=== PATIENT | female | born 1950 | race Caucasian/White ===

== ENCOUNTER 2018-06-25 14:50 | Inpatient (IN) | payer OTHER ==
--- NOTE | 2018-06-25 15:10 | PDOC ---
History of Present Illness - General Chief Complaint: Injury Stated Complaint: FALL Time Seen by Provider: 06/25/18 15:10 History Source: Patient Exam Limitations: No Limitations - History of Present Illness Initial Comments: 06/25/18 15:17 68 year old female with PMH HTN presented to ED for left ankle pain s/p fall today. She stated she was walking her dogs when she slipped and fell on leaves. She denied head injury, denied LOC, denied vomiting, denied chest pain, denied shortness of breath, denied palpitations, denied lightheadedness. She stated her ankle looked deformed, but that she was able to walk on it afterwards. Past History - Past Medical History Allergies/Adverse Reactions: Allergies Allergy/AdvReac Type Severity Reaction Status Date / Time No Known Allergies Allergy Verified 06/25/18 15:05 COPD: No CHF: No - Suicide/Smoking/Psychosocial Hx Smoking History: Never smoked Have you smoked in the past 12 months: No Information on smoking cessation initiated: No Hx Alcohol Use: No Drug/Substance Use Hx: No Substance Use Type: None Review of Systems - Review of Systems Able to Perform ROS?: Yes Comments:: 06/25/18 15:18 General: denied fever, chills, night sweats, generalized weakness. HEENT: denied sore throat, rhinorrhea, ear pain. Heart: denied chest pain, palpitations, syncope, lower extremity swelling, diaphoresis. Respiratory: denied shortness of breath, cough, sputum production, hemoptysis. Abdomen: denied abdominal pain, nausea, vomiting, diarrhea, constipation, blood in stool. : denied dysuria, increased urinary frequency, hematuria, urinary incontinence , flank pain. Back: denied back pain. Musculoskeletal: admitted to left ankle pain and left ankle swelling. Neurological: denied headache, dizziness, numbness, tingling, weakness. Skin: denied rash, laceration, abrasion. *Physical Exam - Vital Signs Last Vital Signs Temp Pulse Resp BP Pulse Ox 98.0 F 58 L 16 114/71 100 06/25/18 15:02 06/25/18 15:02 06/25/18 15:02 06/25/18 15:02 06/25/18 15:02 - Physical Exam Comments: 06/25/18 15:18 Constitutional: Well-nourished, Well-developed, appearing stated age. HEENT: head is normocephalic, atraumatic. EOMI. PERRLA. Neck: supple. Full ROM. Heart: regular rhythm. no murmurs, rubs or gallops. Lungs: clear to auscultation bilaterally. no crackles, rhonchi or wheezing. no stridor. Abdomen: soft, nontender. normal bowel sounds. no rebound, guarding, masses. Extremities: Peripheral pulses intact. left ankle pain to palpation, swelling and deformity with skin tenting to the medial aspect. Neurological: CN 2-12 grossly intact. Moves all four extremities. Psych: awake, alert, oriented x3. Follows commands. Answers questions appropriately. ED Treatment Course - LABORATORY CBC & Chemistry Diagram: 06/25/18 17:04 06/25/18 17:04 - RADIOLOGY Radiology Studies Ordered: Category Date Time Status ANKLE & FOOT-LEFT* [RAD] Stat Radiology 06/25/18 15:06 Ordered Medical Decision Making - Medical Decision Making 06/25/18 15:19 68 year old female with PMH HTN c/o left ankle pain and swelling s/p trip and fall. Initial Vital Signs Temp Pulse Resp BP Pulse Ox 98.0 F 58 L 16 114/71 100 06/25/18 15:02 06/25/18 15:02 06/25/18 15:02 06/25/18 15:02 06/25/18 15:02 Afebrile. Mild bradycardia, no chest pain, no shortness of breath. No tachypnea. No hypertension. No hypoxia on room air. Percocet ordered for pain. X-ray left ankle ordered for evaluation of possible fracture/dislocation. 06/25/18 16:45 XR left ankle: Bimalleolar fracture Ortho paged. 06/25/18 17:[address] Hart, who stated he will come to the ED to evaluate the patient. He requests Lidocaine 10% 10 cc for intra-articular block. Above ordered. Morphine 4 mg IV ordered for pain control. 06/25/18 17:09 Dr. Hart at bed side. 06/25/18 17:52 10cc lidocaine 1% injected into ankle joint by Dr. Hart. Fracture reduced by Dr. Hart at bedside. Posterior leg splint applied. Post-reduction XR ordered. Tdap ordered. 06/25/18 18:14 Preop labs reviewed: CBC WBC 9.3 K/mm3 (4.0-10.0) 06/25/18 17:04 RBC 4.27 M/mm3 (3.60-5.2) 06/25/18 17:04 Hgb 12.9 GM/dL (10.7-15.3) 06/25/18 17:04 Hct 36.7 % (32.4-45.2) 06/25/18 17:04 MCV 85.9 fl (80-96) 06/25/18 17:04 MCH 30.3 pg (25.7-33.7) 06/25/18 17:04 MCHC 35.3 g/dl (32.0-36.0) 06/25/18 17:04 RDW 13.1 % (11.6-15.6) 06/25/18 17:04 Plt Count 199 K/MM3 (134-434) 06/25/18 17:04 MPV 10.6 fl (7.5-11.1) 06/25/18 17:04 Absolute Neuts (auto) 7.6 K/mm3 (1.5-8.0) 06/25/18 17:04 Neutrophils % 82.3 % (42.8-82.8) 06/25/18 17:04 Lymphocytes % 11.9 % (8-40) 06/25/18 17:04 Monocytes % 5.2 % (3.8-10.2) 06/25/18 17:04 Eosinophils % 0.2 % (0-4.5) 06/25/18 17:04 Basophils % 0.4 % (0-2.0) 06/25/18 17:04 Nucleated RBC % 0 % (0-0) 06/25/18 17:04 CMP Sodium 140 mmol/L (136-145) 06/25/18 17:04 Potassium 3.9 mmol/L (3.5-5.1) 06/25/18 17:04 Chloride 107 mmol/L (98-107) 06/25/18 17:04 Carbon Dioxide 26 mmol/L (21-32) 06/25/18 17:04 Anion Gap 7 MMOL/L (8-16) L 06/25/18 17:04 BUN 23 mg/dL (7-18) H 06/25/18 17:04 Creatinine 0.9 mg/dL (0.55-1.3) 06/25/18 17:04 Creat Clearanc e w eGFR > 60 (>60) 06/25/18 17:04 Random Glucose 90 mg/dL (74-106) 06/25/18 17:04 Calcium 9.2 mg/dL (8.5-10.1) 06/25/18 17:04 Total Bilirubin 0.5 mg/dL (0.2-1) 06/25/18 17:04 AST 34 U/L (15-37) 06/25/18 17:04 ALT 37 U/L (13-61) 06/25/18 17:04 Alkaline Phosphatase 112 U/L (45-117) 06/25/18 17:04 Creatine Kinase 363 IU/L (26-192) H 06/25/18 17:04 Troponin I < 0.02 ng/ml (0.00-0.05) 06/25/18 17:04 Total Protein 7.5 g/dl (6.4-8.2) 06/25/18 17:04 Albumin 3.9 g/dl (3.4-5.0) 06/25/18 17:04 INR, PTT INR 1.00 (0.83-1.09) 06/25/18 17:04 EKG performed at 1723: rate 64, regular rhythm, normal axis, flipped T in V2, flattened T in III. 06/25/18 18:44 Pt has decided to stay in the hospital. Pt will be admitted. Dr. Alvarez is a friend of the family, family asked to keep him involved in the case, he has been paged. 06/25/18 19:07 Microblog sent to hospitalist. Pt signed out to Dr. Rdz. *DC/Admit/Observation/Transfer Diagnosis at time of Disposition: Bimalleolar ankle fracture - Discharge Dispostion Condition at time of disposition: Improved Decision to Admit order: Yes - Referrals Referrals: Brett Cooley MD [Primary Care Provider] - - Patient Instructions - Post Discharge Activity
[2018-06-25] MEDS ORDERED: LIDOCAINE HCL 1%, 10 MG/ML (50 mL VIAL) SQ ONE (17:00)
[2018-06-25] MEDS ORDERED: morphine CARPU-JECT 4 MG/1 ML DISP.SYRIN IVPUSH ONE (17:01)
[2018-06-25] MEDS ORDERED: morphine SULFATE 4 MG/ML VIAL ONE (17:18)
[2018-06-25] MEDS ORDERED: LIDOCAINE HCL 1%, 10 MG/ML (20ML VIAL) ONE (17:18)
[2018-06-25 17:22] LABS: BASO % 0.4 % (0-2.0); EOS % 0.2 % (0-4.5); HEMATOCRIT 36.7 % (32.4-45.2); HEMOGLOBIN 12.9 GM/dL (10.7-15.3); LYMPH % 11.9 % (8-40); MCH 30.3 pg (25.7-33.7); MCHC 35.3 g/dl (32.0-36.0); MEAN CELL VOLUME 85.9 fl (80-96); MEAN PLT VOLUME 10.6 fl (7.5-11.1); MONO % 5.2 % (3.8-10.2); NEUT % 82.3 % (42.8-82.8); PLATELET COUNT 199 K/MM3 (134-434); RBC 4.27 M/mm3 (3.60-5.2); RDW 13.1 % (11.6-15.6); WHITE BLOOD COUNT 9.3 K/mm3 (4.0-10.0)
--- NOTE | 2018-06-25 17:23 | PDOC ---
History of Present Illness - General Chief Complaint: Injury Stated Complaint: FALL Time Seen by Provider: 06/25/18 15:10 - History of Present Illness Initial Comments: 06/25/18 17:21 The patient is a 68-year-old female with past medical history significant for HTN presents to the emergency department s/p a fall with L ankle pain. The patient reports she was walking her dog when she slipped on a leaf and fell, denies head injury, LOC. States she felt her ankle roll under her. The patient states she was able to ambulate on the injured leg following the incident but reports severe pain and swelling. Denies any other injury. Allergies: NKA Social history: None reported PCP: None reported. Past History - Past Medical History Allergies/Adverse Reactions: Allergies Allergy/AdvReac Type Severity Reaction Status Date / Time No Known Allergies Allergy Verified 06/25/18 15:05 COPD: No CHF: No - Suicide/Smoking/Psychosocial Hx Smoking History: Never smoked Have you smoked in the past 12 months: No Information on smoking cessation initiated: No Hx Alcohol Use: No Drug/Substance Use Hx: No Substance Use Type: None Review of Systems - Review of Systems Comments:: 06/25/18 17:22 "GENERAL/CONSTITUTIONAL: No fever or chills. No weakness. HEAD, EYES, EARS, NOSE AND THROAT: No change in vision. No ear pain or discharge. No sore throat. CARDIOVASCULAR: No chest pain, no shortness of breath, no loss of consciousness RESPIRATORY: No cough, wheezing, or hemoptysis. GASTROINTESTINAL: No nausea, vomiting, diarrhea or constipation. GENITOURINARY: No dysuria, frequency, or change in urination. MUSCULOSKELETAL: + L ankle swelling and pain, No neck or back pain. SKIN: No rash NEUROLOGIC: No vertigo, no change in strength/sensation. ENDOCRINE: No increased thirst. No abnormal weight change. HEMATOLOGIC/LYMPHATIC: No anemia, easy bleeding, or history of blood clots. ALLERGIC/IMMUNOLOGIC: No hives or skin allergy. *Physical Exam - Vital Signs Last Vital Signs Temp Pulse Resp BP Pulse Ox 98.5 F 65 20 133/70 100 06/25/18 15:23 06/25/18 15:23 06/25/18 15:23 06/25/18 15:23 06/25/18 15:23 - Physical Exam Comments: 06/25/18 17:22 GENERAL: Awake, alert, and fully oriented, in no acute distress. HEAD: No signs of trauma EYES: PERRLA, EOMI, sclera anicteric, conjunctiva clear ENT: Auricles normal inspection, hearing grossly normal, nares patent, oropharynx clear without exudates. Moist mucosa NECK: Nontender, no stepoffs, Normal ROM, supple, no lymphadenopathy, JVD, or masses LUNGS: Breath sounds equal, clear to auscultation bilaterally. No wheezes, and no crackles HEART: Regular rate and rhythm, normal S1 and S2, no murmurs, rubs or gallops ABDOMEN: Soft, nontender, normoactive bowel sounds. No guarding, no rebound. No masses EXTREMITIES: + L ankle with significant deformity to bilateral malleoli + tenderness, + ecchymosis to medial malleolus and skin tenting NEUROLOGICAL: Cranial nerves II through XII intact. 5/5 strength and sensation in all extremities, Normal speech, normal gait, normal cerebellar function SKIN: Warm, Dry, normal turgor, no rashes or lesions noted. ED Treatment Course - LABORATORY CBC & Chemistry Diagram: 06/25/18 17:04 06/25/18 17:04 - Medications Given in the ED: ED Medications Discontinued Medications Generic Name Dose Route Start Last Admin Trade Name Bonyq PRN Reason Stop Dose Admin Oxycodone/Acetaminophen 1 combo 06/25/18 15:16 06/25/18 16:12 Percocet 5/325 - PO 06/25/18 15:17 1 combo ONCE ONE Administration Medical Decision Making - Medical Decision Making 06/25/18 17:23 68 F with likely L ankle fx. Exam notable for skin tenting around medial malleolus, no open fx. No other signs of traumatic injury. - XR - Pain control *DC/Admit/Observation/Transfer - Referrals Referrals: Brett Cooley MD [Primary Care Provider] - - Patient Instructions - Post Discharge Activity
--- NOTE | 2018-06-25 17:24 | PDOC ---
Attending Attestation - Resident Resident Name: Autumn Rose - ED Attending Attestation I have performed the following: I have examined & evaluated the patient, The case was reviewed & discussed with the resident, I agree w/resident's findings & plan, Exceptions are as noted - HPI HPI: 06/25/18 17:24 The patient is a 68-year-old female with past medical history significant for HTN presents to the emergency department s/p a fall with L ankle pain. The patient reports she was walking her dog when she slipped on a leaf and fell, denies head injury, LOC. States she felt her ankle roll under her. The patient states she was able to ambulate on the injured leg following the incident but reports severe pain and swelling. Denies any other injury. Allergies: NKA Social history: None reported PCP: None reported. - Physicial Exam PE: 06/25/18 17:24 GENERAL: Awake, alert, and fully oriented, in no acute distress. HEAD: No signs of trauma EYES: PERRLA, EOMI, sclera anicteric, conjunctiva clear ENT: Auricles normal inspection, hearing grossly normal, nares patent, oropharynx clear without exudates. Moist mucosa NECK: Nontender, no stepoffs, Normal ROM, supple, no lymphadenopathy, JVD, or masses LUNGS: Breath sounds equal, clear to auscultation bilaterally. No wheezes, and no crackles HEART: Regular rate and rhythm, normal S1 and S2, no murmurs, rubs or gallops ABDOMEN: Soft, nontender, normoactive bowel sounds. No guarding, no rebound. No masses EXTREMITIES: + L ankle with significant deformity to bilateral malleoli + tenderness, + ecchymosis to medial malleolus and skin tenting NEUROLOGICAL: Cranial nerves II through XII intact. 5/5 strength and sensation in all extremities, Normal speech, normal gait, normal cerebellar function SKIN: Warm, Dry, normal turgor, no rashes or lesions noted. - Medical Decision Making 06/25/18 17:24 68 F with likely L ankle fx. Exam notable for skin tenting around medial malleolus, no open fx. No other signs of traumatic injury. - XR - Pain control 06/25/18 17:24 XR with L sparkle fx Ortho consulted, at bedside for fx reduction and splinting. 06/25/18 18:54 Pt's ankle reduced and splinted. Will admit for likely OR
[2018-06-25 17:42] LABS: PROTHROMBIN TIME (PATIENT) 11.8 SEC (9.7-13.0)
[2018-06-25] MEDS ORDERED: TETANUS AND DIPHTHERIA TOXOID 0.5 ML DISP.SYRIN IM ONE (17:52)
[2018-06-25 18:11] LABS: ALBUMIN 3.9 g/dl (3.4-5.0); ALK PHOS 112 U/L (45-117); ANION GAP 7 MMOL/L (8-16); BILIRUBIN,TOTAL 0.5 mg/dL (0.2-1); BLOOD UREA NITROGEN 23 mg/dL (7-18); CALCIUM 9.2 mg/dL (8.5-10.1); CHLORIDE 107 mmol/L (98-107); CO2 26 mmol/L (21-32); CREATININE 0.9 mg/dL (0.55-1.3); GLUCOSE,RANDOM 90 mg/dL (74-106); POTASSIUM 3.9 mmol/L (3.5-5.1); SGOT/AST 34 U/L (15-37); SGPT/ALT 37 U/L (13-61); SODIUM 140 mmol/L (136-145); TOT PROT 7.5 g/dl (6.4-8.2)
--- NOTE | 2018-06-25 19:15 | HP ---
Admitting History and Physical - Admission Chief Complaint: Left ankle pain History of Present Illness: Jennifer Reese is a 68 year old female who presents to [facility] ED with left ankle pain. The orthopedic service was consulted for a left ankle fracture. The injury occurred today after a mechanical slip and fall. The patient notes sever pain to the left ankle. Denies any head trauma or LOC. Denies any other injuries. Denies numbness, tingling or other constitutional complaints. 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 Denies tobacco use, drug use, alcohol abuse. She does have a history of tobacco use but quit 15 years ago. The patient lives with family and uses no assistive devices at baseline. History Source: Patient - Past Medical History Cardiovascular: Yes: HTN - Past Surgical History Past Surgical History: Yes: None - Smoking History Smoking history: Former smoker Have you smoked in the past 12 months: No - Alcohol/Substance Use Hx Alcohol Use: No Home Medications - Allergies Allergies/Adverse Reactions: Allergies Allergy/AdvReac Type Severity Reaction Status Date / Time No Known Allergies Allergy Verified 06/25/18 15:05 Family Disease History - Family Disease History Other Family History: Non-contributory Review of Systems - Review of Systems Constitutional: reports: No Symptoms HENT: reports: No Symptoms Physical Examination Vital Signs: Vital Signs Temperature 98.5 F 06/25/18 18:25 Pulse Rate 64 06/25/18 18:25 Respiratory Rate 20 06/25/18 15:23 Blood Pressure 132/60 06/25/18 18:25 O2 Sat by Pulse Oximetry (%) 100 06/25/18 15:23 Labs: CBC, BMP 06/25/18 17:04 06/25/18 17:04
--- NOTE | 2018-06-25 19:23 | PDOC ---
*Physical Exam - Vital Signs Last Vital Signs Temp Pulse Resp BP Pulse Ox 98.5 F 64 20 132/60 100 06/25/18 18:25 06/25/18 18:25 06/25/18 15:23 06/25/18 18:25 06/25/18 15:23 06/25/18 19:18 Patient's care endorsed to me by Dr. Rose and Dr. Demarco at the end of their shift. Ms. Reese is a 68 YOF with h/o HTN who had clear mechanical fall ( slipped on leaves) and suffered bimalleolar fxr, walked on it a bit subsequently , now reduced and splinted in the ED by Dr. Hart with Ortho. Pending admission to Medicine and plan is for surgery tomorrow. Patient's PCP is Dr. Cooley who admits to hospitalist. Pending sign-out to hospitalist now; blank Decision to Admit order has been placed. Will manage pain, check to ensure all pre-op w/u is resulted and she is medically optimized for OR tomorrow, and ensure NPO as of midnight. I have spoken with Dr. Hart here in the ED. ED Treatment Course - LABORATORY CBC & Chemistry Diagram: 06/25/18 17:04 06/25/18 17:04 - ADDITIONAL ORDERS Additional order review: Laboratory Results 06/25/18 06/25/18 17:04 17:04 PT with INR 11.80 INR 1.00 PTT (Actin FS) 25.0 L Sodium 140 Potassium 3.9 Chloride 107 Carbon Dioxide 26 Anion Gap 7 L BUN 23 H Creatinine 0.9 Creat Clearance w eGFR > 60 Random Glucose 90 Calcium 9.2 Total Bilirubin 0.5 AST 34 ALT 37 Alkaline Phosphatase 112 Creatine Kinase 363 H Creatine Kinase Index 1.8 CK-MB (CK-2) 6.8 H Troponin I < 0.02 Total Protein 7.5 Albumin 3.9 06/25/18 17:04 RBC 4.27 MCV 85.9 MCHC 35.3 RDW 13.1 MPV 10.6 Neutrophils % 82.3 Lymphocytes % 11.9 Monocytes % 5.2 Eosinophils % 0.2 Basophils % 0.4 - Medications Given in the ED: ED Medications Discontinued Medications Generic Name Dose Route Start Last Admin Trade Name Freq PRN Reason Stop Dose Admin Lidocaine HCl 10 ml 06/25/18 17:00 06/25/18 17:22 Xylocaine 1% SQ 06/25/18 17:01 Not Given ONCE ONE Morphine Sulfate 4 mg 06/25/18 17:01 06/25/18 17:23 Morphine Injection - IVPUSH 06/25/18 17:02 4 mg ONCE ONE Administration Oxycodone/Acetaminophen 1 combo 06/25/18 15:16 06/25/18 16:12 Percocet 5/325 - PO 06/25/18 15:17 1 combo ONCE ONE Administration Tetanus/Diphtheria Toxoids Adsorbed 0.5 ml 06/25/18 17:52 06/25/18 18:48 Decavac IM 06/25/18 17:53 0.5 ml .ONCE ONE Administration Medical Decision Making - Medical Decision Making Vital Signs - 24 hr 06/25/18 06/25/18 06/25/18 15:02 15:23 18:25 Temperature 98.0 F 98.5 F 98.5 F Pulse Rate 58 L Pulse Rate [ 65 64 Right] Respiratory 16 20 Rate Blood Pressure 114/71 Blood Pressure 133/70 132/60 [Right] O2 Sat by Pulse 100 100 Oximetry (%) 06/25/18 19:28 Placed order for type/screen and retype/screen. EKG done and normal, SR rate 64, normal axis and intervals, no ischemic ST-T changes. CXR reviewed, no focal consolidation, no obvious bony abnormality, no PTX, nothing acute. Labs reviewed as below; no concerning abnormality. Laboratory Tests 06/25/18 06/25/18 06/25/18 17:04 17:04 17:04 WBC 9.3 RBC 4.27 Hgb 12.9 Hct 36.7 MCV 85.9 MCH 30.3 MCHC 35.3 RDW 13.1 Plt Count 199 MPV 10.6 Absolute Neuts (auto) 7.6 Neutrophils % 82.3 Lymphocytes % 11.9 Monocytes % 5.2 Eosinophils % 0.2 Basophils % 0.4 Nucleated RBC % 0 PT with INR 11.80 INR 1.00 PTT (Actin FS) 25.0 L Sodium 140 Potassium 3.9 Chloride 107 Carbon Dioxide 26 Anion Gap 7 L BUN 23 H Creatinine 0.9 Creat Clearance w eGFR > 60 Random Glucose 90 Calcium 9.2 Total Bilirubin 0.5 AST 34 ALT 37 Alkaline Phosphatase 112 Creatine Kinase 363 H Creatine Kinase Index 1.8 CK-MB (CK-2) 6.8 H Troponin I < 0.02 Total Protein 7.5 Albumin 3.9 06/25/18 19:32 I have spoken with Dr. Hart, consult order has been placed. 06/25/18 19:43 I have spoke with Glenroy Stern, patient going to Med/Surg IP. Decision to Admit order corrected with admitting team covering attendings name. Decision to Admit order placed to [facility] covering attending Dr. Palmer. *DC/Admit/Observation/Transfer Diagnosis at time of Disposition: Fall from ground level Bimalleolar ankle fracture Qualifiers: Encounter type: initial encounter Fracture type: closed Laterality: left Qualified Code(s): S82.842A - Displaced bimalleolar fracture of left lower leg, initial encounter for closed fracture - Discharge Dispostion Condition at time of disposition: Guarded Decision to Admit order: Yes - Referrals Referrals: Brett Cooley MD [Primary Care Provider] - - Patient Instructions - Post Discharge Activity
--- NOTE | 2018-06-25 19:26 | CONSULT ---
Consult Consult Specialty:: Orthopedic Surgery Reason for Consultation:: Left ankle fracture - History of Present Illness Chief Complaint: Left ankle pain History of Present Illness: Jennifer Reese is a 68 year old female who presents to [facility] ED with left ankle pain. The orthopedic service was consulted for a left ankle fracture. The injury occurred today after a mechanical slip and fall. The patient notes severe pain to the left ankle. Denies any head trauma or LOC. Denies any other injuries. Denies numbness, tingling or other constitutional complaints. The patient works as a medical payment poster. Denies tobacco use, drug use, alcohol abuse. She does have a history of tobacco use but quit 15 years ago. The patient lives with family and uses no assistive devices at baseline. - Past Medical History Cardio/Vascular: Yes: HTN - Past Surgical History Past Surgical History: Yes: None - Alcohol/Substance Use Hx Alcohol Use: No History of Substance Use: reports: None - Smoking History Smoking history: Former smoker Have you smoked in the past 12 months: No Home Medications - Allergies Allergies/Adverse Reactions: Allergies Allergy/AdvReac Type Severity Reaction Status Date / Time No Known Allergies Allergy Verified 06/25/18 15:05 - Home Medications Home Medications: Ambulatory Orders Losartan Potassium 06/25/18 Nifedipine [Procardia Xl] 06/25/18 Family Disease History - Family Disease History Other Family History: Non-contributory Review of Systems - Review of Systems Constitutional: reports: No Symptoms Eyes: reports: No Symptoms HENT: reports: No Symptoms Neck: reports: No Symptoms Cardiovascular: reports: No Symptoms Respiratory: reports: No Symptoms Gastrointestinal: reports: No Symptoms Integumentary: reports: Bruising Neurological: reports: No Symptoms Endocrine: reports: No Symptoms Hematology/Lymphatic: reports: No Symptoms Psychiatric: reports: No Symptoms Physical Exam Vital Signs: Vital Signs Temperature 98.5 F 06/25/18 18:25 Pulse Rate 64 06/25/18 18:25 Respiratory Rate 20 06/25/18 15:23 Blood Pressure 132/60 06/25/18 18:25 O2 Sat by Pulse Oximetry (%) 100 06/25/18 15:23 Constitutional: Yes: Other (Constitutional: Alert and oriented to person, place , and time. Appears well-developed and well-nourished. No acute distress, appropriate mood and affect.) Musculoskeletal: Yes: Other (Right Upper Extremity: No TTP and painless ROM Left Upper Extremity: No TTP and painless ROM Right Lower Extremity: No TTP and painless ROM) Extremities: Yes: Shortened, Other (Left Lower Extremity: Obvious deformity with medial skin tenting. Ecchymosis over medial skin. Tender to palpation at ankle; nontender throughout rest of extremity. No cords or calf tenderness No significant calf edema. Compartments soft. Able to move toes. SILT distally; 2+ DP pulses; Cap refill brisk.) Labs: CBC, BMP 06/25/18 17:04 06/25/18 17:04 Imaging - Results X-ray: Other (Left ankle radiographs show a left ankle bimalleolar fracture- dislocation.) Assessment/Plan Jennifer Reese is a 68 year old female presenting status post mechanical fall with a left sided closed bimalleolar fracture-dislocation. - We have reviewed the imaging and clinical findings in detail, as well as their potential implications. This is an operative fracture. - Plan for ORIF of the left ankle once the swelling subsides. Medial skin needs to be closely monitored as there was impending skin breakdown prior to the reduction. - Admit. Needs medical clearance - NPO past midnight - NWB LLE - Strict ice and elevation - CBC/BMP/Coags - Type and Screen - IVF - EKG - CXR - UA PROCEDURE NOTE: CLOSED MANIPULATION OF LEFT ANKLE FRACTURE-DISLOCATION After appropriate informed discussion, an intra-articular ankle block was performed. The skin was cleaned with betadyne and 10 mL of 1% lidocaine was injected into the medial joint space. The ankle was then manipulated and the fracture was reduced. The patient was placed in a well-padded trilaminar splint. Post-reduction radiographs confirmed reduction of the fracture. The patient was able to move her toes and had brisk capillary refill after the reduction. Sensation of her toes was intact to light touch. All questions were answered. Thank you for involving our team in the care of this patient. Please call us at [phone] with questions
--- NOTE | 2018-06-25 19:59 | PN ---
Teaching Attending Note Name of Resident: Glenroy Stern ATTENDING PHYSICIAN STATEMENT I saw and evaluated the patient. I reviewed the resident's note and discussed the case with the resident. I agree with the resident's findings and plan as documented. SUBJECTIVE: The patient is a 68-year-old female with past medical history significant for HTN presents to the emergency department s/p a fall with L ankle pain. The patient reports she was walking her dog when she slipped on a leaf and fell, denies head injury, LOC. States she felt her ankle roll under her. The patient states she was able to ambulate on the injured leg following the incident but reports severe pain and swelling. Denies any other injury. Ortho consulted and her fracture was reduced and splinted. OBJECTIVE: Alert Vital Signs Period Temp Pulse Resp BP Sys/Vazquez Pulse Ox Last 24 Hr 98.0 F-98.5 F 58-65 16-20 114-133/60-71 100-100 HEENT: No Jaundice, eye redness or discharge, PERRLA, EOMI. Normocephalic, atraumatic. External ears are normal and hearing is grossly intact. No nasal discharge. Neck: Supple, nontender. No palpable adenopathy or thyromegaly. No JVD Chest: Good effort. Clear to auscultation and percussion. Heart: Regular. No S3, rub or murmur Abdomen: Not distended, soft, nontender and no HSM. No rebound or guarding. Normoactive bowel sounds. Ext: Peripheral pulses intact. No leg edema. Left ankle splinted and tender. No distal motor or sensory deficits. Skin: Warm and dry. No petechiae, rash or ecchymosis. Neuro: Alert. Oriented x3. CN 2-12 grossly intact. Sensation grossly intact in all four extremities and DTR are symmetric. Home Medications Medication Instructions Recorded Losartan Potassium 06/25/18 Nifedipine [Procardia Xl] 06/25/18 Abnormal Lab Results 06/25/18 06/25/18 17:04 17:04 PTT (Actin FS) 25.0 L Anion Gap 7 L BUN 23 H Creatine Kinase 363 H CK-MB (CK-2) 6.8 H ASSESSMENT AND PLAN: 1. Left ankle fracture - After a mechanical fall. Ortho consulted. Likely surgery tomorrow. Will keep her NPO, use IV morphine 2 mg q 4 hours for pain control and give IV NS. 2. DVT prophylaxis - Lovenox 40 mg SQ q 24 hours. 3. Advance directives - Full code
[2018-06-25] MEDS ORDERED: MORPHINE SULFATE 2 MG/ML VIAL IVPUSH PRN (20:14)
--- NOTE | 2018-06-25 20:45 | HP ---
CHIEF COMPLAINT: L ankle fracture PCP: Lenora HISTORY OF PRESENT ILLNESS: Pt is a 68 y/o F with PMH of HTN who presented to ED with L ankle pain following a fall. Pt states she slipped on some leaves while walking her dog. She states she felt left ankle pain, but walked on the foot for a distance before stopping. Pt is presently comfortable in no pain. Denies decreased sensation in affected limb. Denies pain elsewhere in the leg. Denies dizziness, cp, sob, LOC, head trauma. ER course was notable for: (1) fracture set by ortho in ED (2) analgesia given in ED (3) Recent Travel: denies PAST MEDICAL HISTORY: HTN PAST SURGICAL HISTORY: tonsils, breast biopsy Social History: Smokin pack year, quit in 2001 Alcohol: socially Drugs: denies Family History: Lung CA in father at 70, Oral CA in mom at 66 Allergies No Known Allergies Allergy (Verified 06/25/18 15:05) HOME MEDICATIONS: Home Medications Medication Instructions Recorded Losartan Potassium 06/25/18 Nifedipine [Procardia Xl] 06/25/18 REVIEW OF SYSTEMS CONSTITUTIONAL: Absent: fever, chills, diaphoresis, generalized weakness, malaise, loss of appetite, weight change HEENT: Absent: rhinorrhea, nasal congestion, throat pain, throat swelling, difficulty swallowing, mouth swelling, ear pain, eye pain, visual changes CARDIOVASCULAR: Absent: chest pain, syncope, palpitations, irregular heart rate, lightheadedness , peripheral edema RESPIRATORY: Absent: cough, shortness of breath, dyspnea with exertion, orthopnea, wheezing, stridor, hemoptysis GASTROINTESTINAL: Absent: abdominal pain, abdominal distension, nausea, vomiting, diarrhea, constipation, melena, hematochezia GENITOURINARY: Absent: dysuria, frequency, urgency, hesitancy, hematuria, flank pain, genital pain MUSCULOSKELETAL: L ankle pain Absent: myalgia, arthralgia, joint swelling, back pain, neck pain SKIN: Absent: rash, itching, pallor HEMATOLOGIC/IMMUNOLOGIC: Absent: easy bleeding, easy bruising, lymphadenopathy, frequent infections ENDOCRINE: Absent: unexplained weight gain, unexplained weight loss, heat intolerance, cold intolerance NEUROLOGIC: Absent: headache, focal weakness or paresthesias, dizziness, unsteady gait, seizure, mental status changes, bladder or bowel incontinence PSYCHIATRIC: Absent: anxiety, depression, suicidal or homicidal ideation, hallucinations. PHYSICAL EXAMINATION Vital Signs - 24 hr 06/25/18 06/25/18 06/25/18 15:02 15:23 18:25 Temperature 98.0 F 98.5 F 98.5 F Pulse Rate 58 L Pulse Rate [ 65 64 Right] Respiratory 16 20 Rate Blood Pressure 114/71 Blood Pressure 133/70 132/60 [Right] O2 Sat by Pulse 100 100 Oximetry (%) Gen: NAD, AAO x 3 HEENT: NCAT, EOMI, PERRL Neck: supple, no jvd Cardio: rrr, normal s1s2, 2/6 midsystolic murmur LLSB, no rubs/gallops Pulm: cta b/l Abd: nondistended, soft, nontender Ext: L ankle with cast. preserved sensation. cap refill < 2sec Neuro: strength/sensation intact throughout. CN 2-12 intact Laboratory Results - last 24 hr 06/25/18 06/25/18 06/25/18 17:04 17:04 17:04 WBC 9.3 RBC 4.27 Hgb 12.9 Hct 36.7 MCV 85.9 MCH 30.3 MCHC 35.3 RDW 13.1 Plt Count 199 MPV 10.6 Absolute Neuts (auto) 7.6 Neutrophils % 82.3 Lymphocytes % 11.9 Monocytes % 5.2 Eosinophils % 0.2 Basophils % 0.4 Nucleated RBC % 0 PT with INR 11.80 INR 1.00 PTT (Actin FS) 25.0 L Sodium 140 Potassium 3.9 Chloride 107 Carbon Dioxide 26 Anion Gap 7 L BUN 23 H Creatinine 0.9 Creat Clearance w eGFR > 60 Random Glucose 90 Calcium 9.2 Total Bilirubin 0.5 AST 34 ALT 37 Alkaline Phosphatase 112 Creatine Kinase 363 H Creatine Kinase Index 1.8 CK-MB (CK-2) 6.8 H Troponin I < 0.02 Total Protein 7.5 Albumin 3.9 ASSESSMENT/PLAN: Pt is a 68 y/o F with PMH HTN who presented to ED with L ankle pain following a mechanical fall. Pt was found to have bimalleolar fracture. Pt admitted for ortho surg tomorrow. #Ankle fx -Ortho on board -Pain control, morphine #HTN -c/w home nifedipine, losartan #FEN -NS -lytes wnl -Na diet. NPO after midnight #PPx -Hep SubQ #Dispo -Med/surg for ortho surg Glenroy Stern MD PGY-2 IM Visit type - Emergency Visit Emergency Visit: Yes Care time: The patient presented to the Emergency Department on the above date and was hospitalized for further evaluation of their emergent condition. - New Patient This patient is new to me today: Yes Date on this admission: 06/25/18 - Critical Care Critical Care patient: No
[2018-06-25] MEDS ORDERED: SODIUM CHLORIDE 0.45% 1,000 ML IV SCH (21:00)
[2018-06-25] MEDS ORDERED: HEPARIN NA (PORCINE) 5,000 UNITS/ML 1ML VIAL ONE (22:47)
[2018-06-25] MEDS: HEPARIN NA (PORCINE) 5,000 UNITS/ML 1ML VIAL SQ SCH (22:53)
[2018-06-26] MEDS ORDERED: morphine SULFATE 4 MG/ML VIAL ONE (01:17)
[2018-06-26] MEDS: MORPHINE SULFATE 8 MG/ML VIAL IVPUSH PRN ×2 (01:25→06:43)
[2018-06-26] MEDS ORDERED: MORPHINE SULFATE 2 MG/ML VIAL ONE (06:32)
[2018-06-26] MEDS ORDERED: HEPARIN NA (PORCINE) 5,000 UNITS/ML 1ML VIAL ONE (06:35)
[2018-06-26] MEDS: HEPARIN NA (PORCINE) 5,000 UNITS/ML 1ML VIAL SQ SCH (06:43)
[2018-06-26] MEDS ORDERED: morphine SULFATE 4 MG/ML VIAL IVPUSH PRN (07:23)
[2018-06-26 07:43] LABS: HEMOGLOBIN 11.4 GM/dL (10.7-15.3); MCH 29.9 pg (25.7-33.7); MCHC 34.5 g/dl (32.0-36.0); MEAN CELL VOLUME 86.7 fl (80-96); MEAN PLT VOLUME 10.7 fl (7.5-11.1); PLATELET COUNT 188 K/MM3 (134-434); RDW 13.1 % (11.6-15.6)
[2018-06-26 07:50] LABS: ANION GAP 8 MMOL/L (8-16); BLOOD UREA NITROGEN 23 mg/dL (7-18); CALCIUM 8.2 mg/dL (8.5-10.1); CHLORIDE 109 mmol/L (98-107); CO2 26 mmol/L (21-32); CREATININE 0.8 mg/dL (0.55-1.3); GLUCOSE,RANDOM 96 mg/dL (74-106); POTASSIUM 3.8 mmol/L (3.5-5.1); SODIUM 143 mmol/L (136-145)
--- NOTE | 2018-06-26 08:17 | PN ---
Progress Note (short form) - Note Progress Note: ORTHOPEDIC SURGERY PROGRESS NOTE SUBJECTIVE No acute events overnight. No complaints currently. Denies chest pain, shortness of breath, or calf pain. No nausea or vomiting. Tolerating oral intake. Pain control difficult overnight, but improving. VITAL SIGNS Vital Signs Period Temp Pulse Resp BP Sys/Vazquez Pulse Ox Last 24 Hr 98.0 F-98.5 F 58-89 16-20 114-152/60-80 100-100 INTAKE/OUTPUT (LAST THREE SHIFTS) Intake & Output 06/23/18 06/24/18 06/25/18 06/26/18 23:59 23:59 23:59 23:59 Weight 170 lb PHYSICAL EXAMINATION General: Alert, oriented, cooperative and no distress Lower Extremity: Dressing/splint intact; John to move toes. SILT toes distally; Cap refill brisk DVT Exam: No evidence of RLE DVT seen on physical exam; No cords or RLE calf tenderness; No significant RLE calf/ankle edema SCHEDULED MEDS Active Medications Heparin Sodium (Porcine) (Heparin -) 5,000 unit SQ TID [facility] Last Admin: 06/26/18 06:43 Dose: 5,000 unit Sodium Chloride (1/2 Normal Saline) 1,000 mls @ 75 mls/hr IV ASDIR [facility] Last Admin: 06/25/18 22:54 Dose: 75 mls/hr Losartan Potassium (Cozaar -) 100 mg PO DAILY [facility] Morphine Sulfate (Morphine Sulfate) 2 mg IVPUSH Q4H PRN PRN Reason: PAIN LEVEL 1-5 Morphine Sulfate (Morphine Sulfate) 4 mg IVPUSH Q6H PRN PRN Reason: PAIN LEVEL 6-10 Nifedipine (Procardia Xl -) 30 mg PO DAILY [facility] CBC WBC 9.3 K/mm3 (4.0-10.0) 06/25/18 17:04 RBC 4.27 M/mm3 (3.60-5.2) 06/25/18 17:04 Hgb 12.9 GM/dL (10.7-15.3) 06/25/18 17:04 Hct 36.7 % (32.4-45.2) 06/25/18 17:04 MCV 85.9 fl (80-96) 06/25/18 17:04 MCH 30.3 pg (25.7-33.7) 06/25/18 17:04 MCHC 35.3 g/dl (32.0-36.0) 06/25/18 17:04 RDW 13.1 % (11.6-15.6) 06/25/18 17:04 Plt Count 199 K/MM3 (134-434) 06/25/18 17:04 MPV 10.6 fl (7.5-11.1) 06/25/18 17:04 Absolute Neuts (auto) 7.6 K/mm3 (1.5-8.0) 06/25/18 17:04 Neutrophils % 82.3 % (42.8-82.8) 06/25/18 17:04 Lymphocytes % 11.9 % (8-40) 06/25/18 17:04 Monocytes % 5.2 % (3.8-10.2) 06/25/18 17:04 Eosinophils % 0.2 % (0-4.5) 06/25/18 17:04 Basophils % 0.4 % (0-2.0) 06/25/18 17:04 Nucleated RBC % 0 % (0-0) 06/25/18 17:04 CMP Sodium 143 mmol/L (136-145) 06/26/18 06:23 Potassium 3.8 mmol/L (3.5-5.1) 06/26/18 06:23 Chloride 109 mmol/L (98-107) H 06/26/18 06:23 Carbon Dioxide 26 mmol/L (21-32) 06/26/18 06:23 Anion Gap 8 MMOL/L (8-16) 06/26/18 06:23 BUN 23 mg/dL (7-18) H 06/26/18 06:23 Creatinine 0.8 mg/dL (0.55-1.3) 06/26/18 06:23 Creat Clearance w eGFR > 60 (>60) 06/26/18 06:23 Random Glucose 96 mg/dL (74-106) 06/26/18 06:23 Calcium 8.2 mg/dL (8.5-10.1) L 06/26/18 06:23 Total Bilirubin 0.5 mg/dL (0.2-1) 06/25/18 17:04 AST 34 U/L (15-37) 06/25/18 17:04 ALT 37 U/L (13-61) 06/25/18 17:04 Alkaline Phosphatase 112 U/L (45-117) 06/25/18 17:04 Creatine Kinase 363 IU/L (26-192) H 06/25/18 17:04 Creatine Kinase Index 1.8 % (0.0-5.0) 06/25/18 17:04 CK-MB (CK-2) 6.8 ng/mL (0.5-3.6) H 06/25/18 17:04 Troponin I < 0.02 ng/ml (0.00-0.05) 06/25/18 17:04 Total Protein 7.5 g/dl (6.4-8.2) 06/25/18 17:04 Albumin 3.9 g/dl (3.4-5.0) 06/25/18 17:04 INR, PTT INR 1.00 (0.83-1.09) 06/25/18 17:04 RADIOGRAPHS Radiographs of the left ankle were personally reviewed by me again today. Bimalleolar ankle fracture with comminuted fibula fracture. ASSESSMENT AND PLAN 68 year old female with left ankle bimalleolar fracture-dislocation - Surgery delayed this AM because patient received heparin - NPO, IVF, Hold heparin - Pain control - RLE SCD - Strict Ice/Elevation - Appreciate medical management (Nutrition optimization, decubitus precautions heel/sacrum) - NWJaylen Hart DO Department of Orthopedic Surgery
[2018-06-26] MEDS ORDERED: DEXTROSE 5%-LACTATED RINGERS 1,000 ML IV SCH (08:30)
[2018-06-26 08:58] LABS: URINE APPEARANCE CLEAR; URINE BILIRUBIN NEGATIVE (<2.0 mg/dL); URINE COLOR YELLOW; URINE GLUCOSE (UA) NEGATIVE (NEGATIVE); URINE KETONE NEGATIVE (NEGATIVE); URINE LEUK ESTERASE NEGATIVE (NEGATIVE); URINE NITRITE NEGATIVE (NEGATIVE); URINE PROTEIN NEGATIVE (NEGATIVE); URINE UROBILINOGEN NEGATIVE mg/dL (0.2-1.0)
[2018-06-26] MEDS ORDERED: NIFEdipine E.R. 30 MG TABLET (FP) PO SCH ×2 (10:00)
[2018-06-26] MEDS ORDERED: LOSARTAN POTASSIUM 50 MG TABLET (FP) PO SCH (10:00)
--- NOTE | 2018-06-26 12:01 | PN ---
Physical Exam: SUBJECTIVE: Patient seen and examined, pain well controlled currently, no new complaints. OBJECTIVE: Vital Signs Period Temp Pulse Resp BP Sys/Vazquez Pulse Ox Last 24 Hr 98.0 F-98.5 F 58-89 16-20 114-152/60-80 100-100 GENERAL: The patient is awake, alert, and fully oriented, in no acute distress. HEAD: Normal with no signs of trauma. EYES: PERRL, extraocular movements intact, sclera anicteric, conjunctiva clear. No ptosis. Neck: soft, supple, no JVD Chest: CTAB, no rales or wheezing Abdomen:Soft, obese, NT, positive bowel sounds Extremities: LLE cast, able to move goes freely, good capillary refill Laboratory Results - last 24 hr 06/25/18 06/25/18 06/25/18 17:04 17:04 17:04 WBC 9.3 RBC 4.27 Hgb 12.9 Hct 36.7 MCV 85.9 MCH 30.3 MCHC 35.3 RDW 13.1 Plt Count 199 MPV 10.6 Absolute Neuts (auto) 7.6 Neutrophils % 82.3 Lymphocytes % 11.9 Monocytes % 5.2 Eosinophils % 0.2 Basophils % 0.4 Nucleated RBC % 0 PT with INR 11.80 INR 1.00 PTT (Actin FS) 25.0 L Sodium 140 Potassium 3.9 Chloride 107 Carbon Dioxide 26 Anion Gap 7 L BUN 23 H Creatinine 0.9 Creat Clearance w eGFR > 60 Random Glucose 90 Calcium 9.2 Total Bilirubin 0.5 AST 34 ALT 37 Alkaline Phosphatase 112 Creatine Kinase 363 H Creatine Kinase Index 1.8 CK-MB (CK-2) 6.8 H Troponin I < 0.02 Total Protein 7.5 Albumin 3.9 Urine Color Urine Appearance Urine pH Ur Specific Rye Urine Protein Urine Glucose (UA) Urine Ketones Urine Blood Urine Nitrite Urine Bilirubin Urine Urobilinogen Ur Leukocyte Esterase Blood Type Antibody Screen 06/26/18 06/26/18 06/26/18 06:23 06:23 06:48 WBC 7.0 RBC 3.80 Hgb 11.4 Hct 33.0 MCV 86.7 MCH 29.9 MCHC 34.5 RDW 13.1 Plt Count 188 MPV 10.7 Absolute Neuts (auto) Neutrophils % Lymphocytes % Monocytes % Eosinophils % Basophils % Nucleated RBC % PT with INR INR PTT (Actin FS) Sodium 143 Potassium 3.8 Chloride 109 H Carbon Dioxide 26 Anion Gap 8 BUN 23 H Creatinine 0.8 Creat Clearance w eGFR > 60 Random Glucose 96 Calcium 8.2 L Total Bilirubin AST ALT Alkaline Phosphatase Creatine Kinase Creatine Kinase Index CK-MB (CK-2) Troponin I Total Protein Albumin Urine Color Urine Appearance Urine pH Ur Specific Rye Urine Protein Urine Glucose (UA) Urine Ketones Urine Blood Urine Nitrite Urine Bilirubin Urine Urobilinogen Ur Leukocyte Esterase Blood Type A NEGATIVE Antibody Screen Negative 06/26/18 06/26/18 06:58 08:45 WBC RBC Hgb Hct MCV MCH MCHC RDW Plt Count MPV Absolute Neuts (auto) Neutrophils % Lymphocytes % Monocytes % Eosinophils % Basophils % Nucleated RBC % PT with INR INR PTT (Actin FS) Sodium Potassium Chloride Carbon Dioxide Anion Gap BUN Creatinine Creat Clearance w eGFR Random Glucose Calcium Total Bilirubin AST ALT Alkaline Phosphatase Creatine Kinase Creatine Kinase Index CK-MB (CK-2) Troponin I Total Protein Albumin Urine Color Yellow Urine Appearance Clear Urine pH 5.0 Ur Specific Rye 1.021 Urine Protein Negative Urine Glucose (UA) Negative Urine Ketones Negative Urine Blood Negative Urine Nitrite Negative Urine Bilirubin Negative Urine Urobilinogen Negative Ur Leukocyte Esterase Negative Blood Type A NEGATIVE Antibody Screen Negative Active Medications Generic Name Dose Route Start Last Admin Trade Name Freq PRN Reason Stop Dose Admin Dextrose/Lactated Ringer's 1,000 mls @ 75 mls/hr 06/26/18 08:30 06/26/18 08: 32 D5-Lr - IV 75 mls/hr ASDIR DARREN Administration Losartan Potassium 100 mg 06/26/18 10:00 06/26/18 09:10 Cozaar - PO 100 mg DAILY DARREN Administration Morphine Sulfate 2 mg 06/25/18 20:14 Morphine Sulfate IVPUSH Q4H PRN PAIN LEVEL 1-5 Morphine Sulfate 4 mg 06/26/18 07:23 Morphine Sulfate IVPUSH Q6H PRN PAIN LEVEL 6-10 Nifedipine 30 mg 06/26/18 10:00 06/26/18 09:10 Procardia Xl - PO 30 mg DAILY DARREN Administration ASSESSMENT/PLAN: 68 yof with PMhx of HTN, admitted with mechanical fall and trimalleolar fracture -Trimalleloar fracture s/p closed reduction, plan for OR today -HTN Plan: Ortho input noted, discussed with Dr. Rodrigez, plan for OR this afternoon Pain control with Morphine. Continue home ant-hypertensives. IVF. No clincal evidence of CHF, CA or absolute contraindications for surgery. Patient intermediate risk from cardiovascular standpoint for urgent level of surgery. Dispo pending surgical plans. WIll need PT eval post op. D/c in 24-48 hours post surgery if doing well and appropriate disposition arranged. Plan discussed with patient in detail, all questions answered. Visit type - Emergency Visit Emergency Visit: Yes ED Registration Date: 06/25/18 Care time: The patient presented to the Emergency Department on the above date and was hospitalized for further evaluation of their emergent condition. - New Patient This patient is new to me today: Yes Date on this admission: 06/26/18 - Critical Care Critical Care patient: No - Discharge Referral Referred to [facility] Med P.C.: No
[2018-06-26] MEDS ORDERED: MORPHINE SULFATE 2 MG/ML VIAL IVPUSH ONE (13:04)
--- NOTE | 2018-06-26 13:39 | EKG ---
Test Reason : Blood Pressure : / mmHG Vent. Rate : 064 BPM Atrial Rate : 064 BPM P-R Int : 154 ms QRS Dur : 082 ms QT Int : 424 ms P-R-T Axes : 064 054 046 degrees QTc Int : 437 ms POOR DATA QUALITY, INTERPRETATION MAY BE ADVERSELY AFFECTED NORMAL SINUS RHYTHM NORMAL ECG NO PREVIOUS ECGS AVAILABLE Confirmed by SHAR WELLS MD ([id number]) on 06/26/2018 1:39:05 PM Referred By: Confirmed By:SHAR WELLS MD
[2018-06-26 13:45] VITALS: BMI 26.6
[2018-06-26] MEDS ORDERED: PROPOFOL 20 ML ONE (15:41)
[2018-06-26] MEDS ORDERED: LIDOCAINE HCL/PF 2% SDV 5ML VIAL ONE (15:41)
[2018-06-26] MEDS ORDERED: fentaNYL CITRATE 250 MCG/5 ML VIAL ONE (15:41)
[2018-06-26] MEDS ORDERED: ceFAZolin SODIUM 1 GM VIAL ONE (15:41)
[2018-06-26] MEDS ORDERED: SUCCINYLCHOLINE CHLORIDE 200 MG/10 ML VIAL ONE (15:41)
[2018-06-26] MEDS ORDERED: ROCURONIUM BROMIDE 50 MG/5 ML VIAL ONE (15:42)
[2018-06-26] MEDS ORDERED: ceFAZolin SODIUM 1 GM VIAL IVPB ONE (16:05)
[2018-06-26] MEDS ORDERED: BUPIVACAINE HCL/PF 0.25% (2.5MG/ML) 10 ML VIAL ONE (16:17)
[2018-06-26] MEDS ORDERED: ePHEDrine SULFATE 50 MG/1 ML AMPULE ONE (16:18)
[2018-06-26] MEDS ORDERED: BUPIVACAINE HCL/PF 0.25% (2.5MG/ML) 10 ML VIAL IJ ONE ×2 (16:29)
[2018-06-26] MEDS ORDERED: PROMETHAZINE HCL 25 MG/1 ML VIAL IVPUSH PRN ×2 (18:25→18:43)
[2018-06-26] MEDS ORDERED: ONDANSETRON 4 MG/2 ML VIAL IVPUSH PRN ×2 (18:25→18:43)
[2018-06-26] MEDS ORDERED: oxyCODONE HCL 5 MG TABLET PO PRN (18:25)
[2018-06-26] MEDS ORDERED: HYDROmorphone *PCA* 10MG/50ML DISP.SYRIN PCA ONE (18:27)
[2018-06-26] MEDS ORDERED: HYDROmorphone *PCA* 10MG/50ML DISP.SYRIN PCA SCH ×2 (18:30→19:00)
[2018-06-26] MEDS ORDERED: LACTATED RINGERS SOLUTION 1,000 ML IV SCH (18:30)
--- NOTE | 2018-06-26 19:06 | OPR ---
OPERATIVE REPORT DATE OF PROCEDURE: 06/26/2018 TITLE OF OPERATION: Left open reduction, internal fixation of a lateral malleolus and medial malleolus fracture (CPT 44536) PREOPERATIVE DIAGNOSIS: Left medial and lateral malleolus fracture (Bimalleolar ankle fracture) POSTOPERATIVE DIAGNOSIS: same SURGEON: Nate Hart DO JOINT CUTTER: Dereck Rodrigez DO ANESTHESIA: General anesthesia SPECIMEN (BACTERIOLOGICAL, PATHOLOGICAL OR OTHER): None PROSTHETIC DEVICE/IMPLANT: Fibula: Felicitas Variax Distal Fibular Plate with (3) 3.5 mm cortical screws proximally and (4) 3.5 mm locking screws distally; Medial malleolus: (2) 4.0 mm partially threaded cannulated cancellous screw. EBL: < 50ml TOURNIQUET TIME: 76 minutes INDICATIONS FOR SURGERY: Jennifer Reese is a 68 year old female who presented in the preoperative setting with a chief complaint of left ankle fracture-dislocation. After a discussion of the ankle fracture and treatment options, surgical options were discussed including the above procedure. The risks and benefits of surgery and anesthesia were discussed in detail including but not limited to pain, bleeding, infection , scarring, damage to vessels and nerves, failure to obtain the desired result, failure to heal, failure to return to sport. Understanding the risks and benefits, Jennifer opted to proceed with surgical management. SURGEON'S NARRATIVE: Ms. Reese was seen in the preoperative area. Her left side was marked for surgery and consent was reviewed and signed. She was then brought back to the operating room. She was transferred to the OR table. All bony prominences were well padded. A time-out was held and all team members agreed on the operative side and planned procedure. Anesthesia was then induced. Preoperative prophylactic antibiotics were indicated and 2 grams of Ancef were given prior to and within one hour of any incision. Sequential compression devices were placed on the contralateral extremity for the duration of the case as part of a comprehensive DVT prophylaxis protocol consisting of intraoperative SCDs, early postoperative mobilization and aspirin for chemoprophylaxis. A thigh tourniquet was placed. The patient was positioned with the use of a baumann bag. We again verified that all bony prominences were well-padded. Then the leg was prepped and draped in the usual sterile fashion. The ankle was exsanguinated with an Esmarch and the tourniquet was inflated. It remained inflated for 76 minutes. Attention was turned to the lateral ankle. An incision was marked out along the lateral fibula for a direct lateral approach based off of the level of the fracture. The skin was incised sharply with a 15-blade, then a Metzenbaum scissor was used to dissect the deeper tissue. The superficial peroneal nerve was not in the surgical field. The fracture was identified and noted to be comminuted. Care was taken not to strip the periosteum or soft tissue attachments from these bone fragments. Through manual reduction, a lion jaw clamp and a [id number] reduction clamp , the fracture length, alignment and rotation was restored. Fluoroscopy confirmed reduction of the fracture. Attention was then turned to the plate. A 4 hole plate was selected for fixation. It was placed on the lateral fibula and correct position was verified using fluoroscopy. The plate was then placed and held in place with locking and cortical screws. Fluoroscopy was employed throughout plate application to verify correct position. Attention was then turned to the medial malleolus Using a 15-blade, a direct medial approach was taken down to the medial malleolus. The saphenous vessel and nerve were identified and protected. The fracture was identified. The fracture was irrigated as was the visible joint. The fracture ends were then cleaned out using the dental pick. Then the fracture was reduced to anatomic position using a qhnbz-bo-rally reduction clamp after which two k-wires were used to hold the position. The k-wire were then overdrilled and two 40 mm, 4.0 mm, partially threaded, cannulated screws were utilized. At this time, attention was turned to evaluation of syndesmotic stability. A mortise x-ray was obtained and a lion jaw was placed around the lateral malleolus. Under live fluoroscopy, syndesmotic and medial clear space integrity were evaluated. The syndesmosis was noted to be stable. We also performed a stress examination using dorsiflexion and external rotation to evaluate the integrity of the ankle ligaments. We found no syndesmotic widening. Biplanar fluoroscopy was employed throughout the case to confirm correct placement of all metal hardware. Attention was then turned to closure. The incisions were copiously irrigated with sterile saline. Subcutaneous tissue was closed with 2-0 vicryl. Skin was closed with interrupted 3-0 nylon sutures. At closure, all needle counts and sponge counts were correct. The toes were warm and well-perfused at the end of the case. Xeroform, 4x4, and sterile soft-roll was applied. Then, a standard AO-type splint with posterior splint with side U-shaped splint was applied. The ankle was held in neutral dorsiflexion throughout splint application. Ms. Reese was then awoken and brought to the postoperative recovery room in stable condition. There was no complications immediately apparent. I was scrubbed throughout the entire case. There was no qualified resident available to assist with the case, so Dr. Dereck Rodrigez DO served as a dental laboratory assistant throughout the case. POSTOPERATIVE PLAN - The postoperative dressing should remain in place until follow-up. The dressing should be kept clean and dry. - The leg should be elevated above the level of the heart as much as possible to decrease swelling and improve wound healing - Ice - Postoperative antibiotics prophylaxis with Ancef 2 grams for 2 more doses - Pain control with SUPERVISOR PASTRY; DC in the AM and transition to oxycodone 5-10 mg by mouth every 3-6 hours as needed for pain - Itching control with benadryl (diphenhydramine) by mouth every 6 hours as needed for itching - The plan is for 6 weeks of nonweightbearing - Comprehensive DVT prophylaxis consists of intraoperative SCDs, early postoperative mobilization and Aspirin 325 mg BID for chemoprophylaxis. Nate Hart DO Orthopedic Surgery
[2018-06-26] MEDS: LACTATED RINGERS SOLUTION 1,000 ML IV SCH (19:26)
[2018-06-26] MEDS ORDERED: ONDANSETRON 4 MG/2 ML VIAL ONE (19:29)
[2018-06-26] MEDS ORDERED: BENZOCAINE/MENTH/CETYLPYRD CL 1 EACH LOZENGE MM PRN (20:17)
[2018-06-27] MEDS: CEFAZOLIN 2 GM/D5W 2 GM/50 ML ML IVPB SCH ×2 (00:12→08:48)
[2018-06-27] MEDS: LACTATED RINGERS SOLUTION 1,000 ML IV SCH (06:49)
[2018-06-27 07:24] LABS: BASO % 0.4 % (0-2.0); HEMATOCRIT 33.4 % (32.4-45.2); HEMOGLOBIN 11.6 GM/dL (10.7-15.3); LYMPH % 13.7 % (8-40); MCH 30.2 pg (25.7-33.7); MCHC 34.9 g/dl (32.0-36.0); MEAN CELL VOLUME 86.5 fl (80-96); MEAN PLT VOLUME 10.3 fl (7.5-11.1); MONO % 6.2 % (3.8-10.2); NEUT % 79.7 % (42.8-82.8); PLATELET COUNT 182 K/MM3 (134-434); RBC 3.86 M/mm3 (3.60-5.2); RDW 12.7 % (11.6-15.6); WHITE BLOOD COUNT 8.4 K/mm3 (4.0-10.0)
[2018-06-27 08:08] LABS: ANION GAP 7 MMOL/L (8-16); BLOOD UREA NITROGEN 17 mg/dL (7-18); CALCIUM 8.7 mg/dL (8.5-10.1); CHLORIDE 108 mmol/L (98-107); CO2 26 mmol/L (21-32); CREATININE 0.9 mg/dL (0.55-1.3); GLUCOSE,RANDOM 104 mg/dL (74-106); POTASSIUM 4.1 mmol/L (3.5-5.1); SODIUM 140 mmol/L (136-145)
[2018-06-27] MEDS: LOSARTAN POTASSIUM 50 MG TABLET (FP) PO SCH (09:11)
[2018-06-27] MEDS: ASPIRIN 325 MG ENTERIC COATED TABLET (FP) PO SCH ×2 (09:12→21:11)
[2018-06-27] MEDS: NIFEdipine E.R. 30 MG TABLET (FP) PO SCH (09:12)
[2018-06-27] MEDS ORDERED: DOCUSATE SODIUM 100 MG CAPSULE (FP) PO ONE (09:14)
--- NOTE | 2018-06-27 12:37 | PN ---
Progress Note (short form) - Note Progress Note: ORTHOPEDIC SURGERY PROGRESS NOTE SUBJECTIVE No acute events overnight. No complaints currently. Denies chest pain, shortness of breath, or calf pain. No nausea or vomiting. Tolerating oral intake. Pain control difficult overnight, but improving. VITAL SIGNS Vital Signs Period Temp Pulse Resp BP Sys/Vazquez Pulse Ox Last 24 Hr 97.6 F-98.7 F 53-80 16-20 123-153/58-87 95-100 INTAKE/OUTPUT (LAST THREE SHIFTS) Intake & Output 06/26/18 06/27/18 06/27/18 23:59 07:59 15:59 Intake Total 1300 330 Output Total 0 Balance 1300 330 PHYSICAL EXAMINATION General: Alert, oriented, cooperative and no distress Lower Extremity: Splint intact; Exposed skin intact, no lesions, rashes or ulcers noted. No tenderness to palpation. Unable to assess ankle ROM. Able to move toes. SILT toes and dorsal foot. DP pulse palpable 2+; Cap refill brisk DVT Exam: No evidence of DVT seen on physical exam; No cords or RLE calf tenderness; No significant RLE calf/ankle edema SCHEDULED MEDS Active Medications Aspirin (Ecotrin -) 325 mg PO BID [facility] Last Admin: 06/27/18 09:12 Dose: 325 mg Benzocaine/Menthol (Cepacol Lozenge -) 1 each MM PRN PRN PRN Reason: SORE THROAT Lactated Ringer's (Lactated Ringers Solution) 1,000 mls @ 75 mls/hr IV ASDIR [facility] Last Admin: 06/27/18 06:49 Dose: 75 mls/hr Losartan Potassium (Cozaar -) 100 mg PO DAILY [facility] Last Admin: 06/27/18 09:11 Dose: 100 mg Nifedipine (Procardia Xl -) 30 mg PO DAILY [facility] Last Admin: 06/27/18 09:12 Dose: 30 mg Oxycodone HCl (Roxicodone -) 5 mg PO Q4H PRN PRN Reason: PAIN LEVEL 1-5 Senna (Senna -) 1 tab PO HS [facility] LABS CBC WBC 8.4 K/mm3 (4.0-10.0) 06/27/18 06:30 RBC 3.86 M/mm3 (3.60-5.2) 06/27/18 06:30 Hgb 11.6 GM/dL (10.7-15.3) 06/27/18 06:30 Hct 33.4 % (32.4-45.2) 06/27/18 06:30 MCV 86.5 fl (80-96) 06/27/18 06:30 MCH 30.2 pg (25.7-33.7) 06/27/18 06:30 MCHC 34.9 g/dl (32.0-36.0) 06/27/18 06:30 RDW 12.7 % (11.6-15.6) 06/27/18 06:30 Plt Count 182 K/MM3 (134-434) 06/27/18 06:30 MPV 10.3 fl (7.5-11.1) 06/27/18 06:30 Absolute Neuts (auto) 6.7 K/mm3 (1.5-8.0) 06/27/18 06:30 Neutrophils % 79.7 % (42.8-82.8) 06/27/18 06:30 Lymphocytes % 13.7 % (8-40) 06/27/18 06:30 Monocytes % 6.2 % (3.8-10.2) 06/27/18 06:30 Eosinophils % 0.0 % (0-4.5) D 06/27/18 06:30 Basophils % 0.4 % (0-2.0) 06/27/18 06:30 Nucleated RBC % 0 % (0-0) 06/27/18 06:30 CMP Sodium 140 mmol/L (136-145) 06/27/18 06:30 Potassium 4.1 mmol/L (3.5-5.1) 06/27/18 06:30 Chloride 108 mmol/L (98-107) H 06/27/18 06:30 Carbon Dioxide 26 mmol/L (21-32) 06/27/18 06:30 Anion Gap 7 MMOL/L (8-16) L 06/27/18 06:30 BUN 17 mg/dL (7-18) 06/27/18 06:30 Creatinine 0.9 mg/dL (0.55-1.3) 06/27/18 06:30 Creat Clearance w eGFR > 60 (>60) 06/27/18 06:30 Random Glucose 104 mg/dL (74-106) 06/27/18 06:30 Calcium 8.7 mg/dL (8.5-10.1) 06/27/18 06:30 Total Bilirubin 0.5 mg/dL (0.2-1) 06/25/18 17:04 AST 34 U/L (15-37) 06/25/18 17:04 ALT 37 U/L (13-61) 06/25/18 17:04 Alkaline Phosphatase 112 U/L (45-117) 06/25/18 17:04 Creatine Kinase 363 IU/L (26-192) H 06/25/18 17:04 Creatine Kinase Index 1.8 % (0.0-5.0) 06/25/18 17:04 CK-MB (CK-2) 6.8 ng/mL (0.5-3.6) H 06/25/18 17:04 Troponin I < 0.02 ng/ml (0.00-0.05) 06/25/18 17:04 Total Protein 7.5 g/dl (6.4-8.2) 06/25/18 17:04 Albumin 3.9 g/dl (3.4-5.0) 06/25/18 17:04 IMAGING Postoperative radiographs show reduced ankle mortise and ankle hardware to be intact. ASSESSMENT AND PLAN 68 F s/p ORIF left ankle POD #1. Doing well. - Pain control: Transition to oral pain medications - DVT prophylaxis: Aspirin 325 BID - Ice/Elevation - Elevate HOB, encourage oral intake - Appreciate medical management (Nutrition optimization, decubitus precautions heel/sacrum) - PT/OT;NWB LLE - Dispo planning: Discharge instructions given to the patient. She may follow up in the office in 10-14 days for suture removal and wound check. We also gave the patient a prescription for oxycodone and aspirin (sent to her pharmacy - [facility] on [address]). Nate Hart, DO Orthopedic Surgery
--- NOTE | 2018-06-27 13:01 | PN ---
Progress Note (short form) - Note Progress Note: ANESTHESIOLOGY POST-OP CHECK 68F s/p left ankle ORIF under general anesthesia POD #1. no acute complaints. Pain 6-7/10 and tolerable. Denies N/V, toleraing PO diet. Vital Signs Temperature 98.7 F 06/27/18 09:00 Pulse Rate 53 L 06/27/18 09:00 Respiratory Rate 20 06/27/18 09:00 Blood Pressure 130/72 06/27/18 09:00 O2 Sat by Pulse Oximetry (%) 98 06/27/18 09:00 Active Medications Aspirin (Ecotrin -) 325 mg PO BID [facility] Last Admin: 06/27/18 09:12 Dose: 325 mg Benzocaine/Menthol (Cepacol Lozenge -) 1 each MM PRN PRN PRN Reason: SORE THROAT Lactated Ringer's (Lactated Ringers Solution) 1,000 mls @ 75 mls/hr IV ASDIR [facility] Last Admin: 06/27/18 06:49 Dose: 75 mls/hr Losartan Potassium (Cozaar -) 100 mg PO DAILY [facility] Last Admin: 06/27/18 09:11 Dose: 100 mg Nifedipine (Procardia Xl -) 30 mg PO DAILY [facility] Last Admin: 06/27/18 09:12 Dose: 30 mg Oxycodone HCl (Roxicodone -) 5 mg PO Q4H PRN PRN Reason: PAIN LEVEL 1-5 Senna (Senna -) 1 tab PO HS [facility] Gen: Awake, alert No apparent anesthesia complications. Pain controlled, D/C [employer] and switch to PO analgesics as per primary team.
--- NOTE | 2018-06-27 14:29 | DS ---
Physical Exam: SUBJECTIVE: Patient seen and examined OBJECTIVE: Vital Signs Period Temp Pulse Resp BP Sys/Vazquez Pulse Ox Last 24 Hr 97.6 F-98.7 F 53-75 16-20 123-153/58-87 95-98 PHYSICAL EXAM GENERAL: The patient is awake, alert, and fully oriented, in no acute distress. HEAD: Normal with no signs of trauma. EYES: PERRL, extraocular movements intact, sclera anicteric, conjunctiva clear. ENT: Ears normal, nares patent, oropharynx clear without exudates, moist mucous membranes. NECK: Trachea midline, full range of motion, supple. LUNGS: Breath sounds equal, clear to auscultation bilaterally, no wheezes, no crackles, no accessory muscle use. HEART: Regular rate and rhythm, S1, S2 without murmur, rub or gallop. ABDOMEN: Soft, nontender, nondistended, normoactive bowel sounds, no guarding, no rebound, no hepatosplenomegaly, no masses. EXTREMITIES: 2+ pulses, warm, well-perfused, no edema. NEUROLOGICAL: Cranial nerves II through XII grossly intact. Normal speech, gait not observed. PSYCH: Normal mood, normal affect. SKIN: Warm, dry, normal turgor, no rashes or lesions noted. LABS Laboratory Results - last 24 hr 06/27/18 06/27/18 06:30 06:30 WBC 8.4 RBC 3.86 Hgb 11.6 Hct 33.4 MCV 86.5 MCH 30.2 MCHC 34.9 RDW 12.7 Plt Count 182 MPV 10.3 Absolute Neuts (auto) 6.7 Neutrophils % 79.7 Lymphocytes % 13.7 Monocytes % 6.2 Eosinophils % 0.0 D Basophils % 0.4 Nucleated RBC % 0 Sodium 140 Potassium 4.1 Chloride 108 H Carbon Dioxide 26 Anion Gap 7 L BUN 17 Creatinine 0.9 Creat Clearance w eGFR > 60 Random Glucose 104 Calcium 8.7 HOSPITAL COURSE: Date of Admission:06/25/18 Date of Discharge: 06/27/18 stable for discharge Discharge Summary Reason For Visit: BIMALLEOLAR FRACTURE Current Active Problems Bimalleolar ankle fracture (Acute) Condition: Improved - Instructions Diet, Activity, Other Instructions: Medication changes: take aspirin 325 mg twice daily till further instructed by orthopedic. Ice and elevation of the left leg as possible. Do not bear any weight on your left leg till further cleared by orthopedic. You have been arranged for home physical therapy. Follow up with orthopedic office in 10-14 days. Prescriptions for Aspirin and oxycodone have been sent by the orthopedic surgeon to [facility] on [address] not [address], operate heavy machinery or take important decisions alone while on narcotics. Do not take if sleepy, dizzy or drowsy, taper as symptoms. Please ensure to maintain high fiber diet and bowel regimen to avoid constipation while on narcotics. Continue your home medications as before. If you have new pain, numbness/tingling, or discoloration of the foot, severe pain, or any new concerns, please call 911 or return to the emergency department. Referrals: Brett Cooley MD [Primary Care Provider] - 1 Week Dereck Rodrigez DO [Staff Physician] - 1 Week Disposition: VNS/HOME HEALTH CARE - Home Medications Comprehensive Discharge Medication List: Ambulatory Orders Losartan Potassium 100 mg PO DAILY 06/25/18 Nifedipine [Procardia Xl] 30 mg PO DAILY 06/25/18 Aspirin Coated [Ecotrin -] 325 mg PO BID tablet. 06/27/18 Docusate Sodium [Colace] 100 mg PO BID #30 capsule 06/27/18 Sennosides [Senna -] 1 tab PO HS tablet 06/27/18 oxyCODONE HCL [Roxicodone -] 5 mg PO Q4H PRN #10 tablet MDD 6 06/27/18 - Discharge Referral [facility]erred to [facility] No
--- NOTE | 2018-06-27 14:36 | DS ---
Physical Exam: SUBJECTIVE: Patient seen and examined at bedside. Resting in bed comfortably. Has passed flatus. Denies numbness or tingling in foot. OBJECTIVE: Vital Signs Period Temp Pulse Resp BP Sys/Vazquez Pulse Ox Last 24 Hr 97.6 F-98.7 F 53-75 16-20 123-153/58-87 95-98 PHYSICAL EXAM GENERAL: Alert Oriented Awake NAD HEAD: NC/AT EYES: EOMI No scleral icterus, conjunctiva clear ENT: MMM NECK: Trachea midline, full range of motion, supple. LUNGS: CTA B/L No rales rhonchi or wheezing HEART: RRR No MRG S1S2 ABDOMEN: NDNT No HSM EXTREMITIES: No CCE. Left foor warm to touch, no discoloration, capillary refill unobtainable 2/2 nail sinhala. NEUROLOGICAL: Cranial nerves II through XII grossly intact. Normal speech, gait not observed. PSYCH: Normal mood, normal affect. SKIN: Warm, dry, normal turgor, no rashes or lesions noted. LABS Laboratory Results - last 24 hr 06/27/18 06/27/18 06:30 06:30 WBC 8.4 RBC 3.86 Hgb 11.6 Hct 33.4 MCV 86.5 MCH 30.2 MCHC 34.9 RDW 12.7 Plt Count 182 MPV 10.3 Absolute Neuts (auto) 6.7 Neutrophils % 79.7 Lymphocytes % 13.7 Monocytes % 6.2 Eosinophils % 0.0 D Basophils % 0.4 Nucleated RBC % 0 Sodium 140 Potassium 4.1 Chloride 108 H Carbon Dioxide 26 Anion Gap 7 L BUN 17 Creatinine 0.9 Creat Clearance w eGFR > 60 Random Glucose 104 Calcium 8.7 HOSPITAL COURSE: Date of Admission:06/25/18 Pt presented to [facility] with L ankle pain following a fall. Ankle X-Ray revealed a bimalleolar fracture with a widened mortise and swelling. Orthopedic Surgery, Dr Hart, was consulted. 10cc lidocaine 1% was injected injected into pt's ankle joint by Dr. Hart and fracture reduced by Dr. Hart at bedside in ED. Furthermore, a Posterior leg splint was applied. Pt was scheduled for and underwent a Left open reduction, internal fixation of a lateral malleolus and medial malleolus fracture. Pt was placed on post-operative antibiotics, Ancef. Comprehensive DVT prophylaxis consisted of Aspirin 325 mg BID, SCD's, and early postoperative mobilization. Post-operative, pt was placed on SAILING MASTER and eventually switched to PO Analgesia. Date of Discharge: 06/27/18 Minutes to complete discharge: 35 Discharge Summary Reason For Visit: BIMALLEOLAR FRACTURE Current Active Problems Bimalleolar ankle fracture (Acute) Condition: Improved - Instructions Diet, Activity, Other Instructions: Medication changes: take aspirin 325 mg twice daily till further instructed by orthopedic. Ice and elevation of the left leg as possible. Do not bear any weight on your left leg till further cleared by orthopedic. You have been arranged for home physical therapy. Follow up with orthopedic office in 10-14 days. Prescriptions for Aspirin and oxycodone have been sent by the orthopedic surgeon to [facility] on [address], operate heavy machinery or take important decisions alone while on narcotics. Do not take if sleepy, dizzy or drowsy, taper as symptoms. Please ensure to maintain high fiber diet and bowel regimen to avoid constipation while on narcotics. Continue your home medications as before. If you have new pain, numbness/tingling, or discoloration of the foot, severe pain, or any new concerns, please call 911 or return to the emergency department. Referrals: Brett Cooley MD [Primary Care Provider] - 1 Week Dereck Rodrigez DO [Staff Physician] - 1 Week Disposition: VNS/HOME HEALTH CARE - Home Medications Comprehensive Discharge Medication List: Ambulatory Orders Losartan Potassium 100 mg PO DAILY 06/25/18 Nifedipine [Procardia Xl] 30 mg PO DAILY 06/25/18 Aspirin Coated [Ecotrin -] 325 mg PO BID tablet. 06/27/18 Docusate Sodium [Colace] 100 mg PO BID #30 capsule 06/27/18 Sennosides [Senna -] 1 tab PO HS tablet 06/27/18 oxyCODONE HCL [Roxicodone -] 5 mg PO Q4H PRN #10 tablet MDD 6 06/27/18 This patient is new to me today: Yes Date on this admission: 06/27/18 Emergency Visit: Yes ED Registration Date: 06/25/18 Care time: The patient presented to the Emergency Department on the above date and was hospitalized for further evaluation of their emergent condition. Critical Care patient: No - Discharge Referral Referred to [facility] No
--- NOTE | 2018-06-27 14:46 | PN ---
Teaching Attending Note Name of Resident: Glenroy Carter ATTENDING PHYSICIAN STATEMENT I saw and evaluated the patient. I reviewed the resident's note and discussed the case with the resident. I agree with the resident's findings and plan as documented with exceptions below. SUBJECTIVE: Patient seen and examined. Left foot pain well controlled. passing gas, tolerating diet, no complaints. OBJECTIVE: Vital Signs Period Temp Pulse Resp BP Sys/Vazquez Pulse Ox Last 24 Hr 97.6 F-98.7 F 53-75 16-20 123-153/58-87 95-98 Intake & Output 06/24/18 06/25/18 06/26/18 06/27/18 23:59 23:59 23:59 23:59 Intake Total 1300 330 Output Total 0 Balance 1300 330 Weight 170 lb 160 lb General: sitting in bed in no acute distress Chest: CTAB, no rales or wheezing Abdomen: soft, obese, NT, positive bowel sounds Extremities: left ankle cast, able to move toes freely, good capillary refill Active Medications Aspirin (Ecotrin -) 325 mg PO BID [facility] Last Admin: 06/27/18 09:12 Dose: 325 mg Benzocaine/Menthol (Cepacol Lozenge -) 1 each MM PRN PRN PRN Reason: SORE THROAT Lactated Ringer's (Lactated Ringers Solution) 1,000 mls @ 75 mls/hr IV ASDIR [facility] Last Admin: 06/27/18 06:49 Dose: 75 mls/hr Losartan Potassium (Cozaar -) 100 mg PO DAILY [facility] Last Admin: 06/27/18 09:11 Dose: 100 mg Nifedipine (Procardia Xl -) 30 mg PO DAILY [facility] Last Admin: 06/27/18 09:12 Dose: 30 mg Oxycodone HCl (Roxicodone -) 5 mg PO Q4H PRN PRN Reason: PAIN LEVEL 1-5 Senna (Senna -) 1 tab PO HS [facility] Laboratory Results - last 24 hr 06/27/18 06/27/18 06:30 06:30 WBC 8.4 RBC 3.86 Hgb 11.6 Hct 33.4 MCV 86.5 MCH 30.2 MCHC 34.9 RDW 12.7 Plt Count 182 MPV 10.3 Absolute Neuts (auto) 6.7 Neutrophils % 79.7 Lymphocytes % 13.7 Monocytes % 6.2 Eosinophils % 0.0 D Basophils % 0.4 Nucleated RBC % 0 Sodium 140 Potassium 4.1 Chloride 108 H Carbon Dioxide 26 Anion Gap 7 L BUN 17 Creatinine 0.9 Creat Clearance w eGFR > 60 Random Glucose 104 Calcium 8.7 ASSESSMENT AND PLAN: 68 yof with PMhx of HTN, admitted with mechanical fall and trimalleolar fracture -Trimalleloar fracture s/p Open reduction/internal fixation 06/25 -HTN Plan: Doing well, off [employer], start po oxycodone. ASA 325 mg BID. NWB LLE. PT eval noted. Home PT and assist. Continue home anti-hypertensives. Bowel regimen. PO as tolerated. Orthopedic input appreciated. d/c home with VNS/PT with outpatient orthopedic follow up. Plan discussed with patient in detail, all questions answered.
[2018-06-27] MEDS: oxyCODONE HCL 5 MG TABLET PO PRN (20:49)
[2018-06-27] MEDS ORDERED: SENNOSIDES 8.6MG TABLET (FP) PO SCH (22:00)
[2018-06-28] MEDS: LOSARTAN POTASSIUM 50 MG TABLET (FP) PO SCH (09:23)
[2018-06-28] MEDS: oxyCODONE HCL 5 MG TABLET PO PRN ×2 (09:23→15:08)
[2018-06-28] MEDS: ASPIRIN 325 MG ENTERIC COATED TABLET (FP) PO SCH (09:23)
[2018-06-28] MEDS: NIFEdipine E.R. 30 MG TABLET (FP) PO SCH (09:23)
--- NOTE | 2018-06-28 09:41 | PN ---
Progress Note (short form) - Note Progress Note: ORTHOPEDIC SURGERY PROGRESS NOTE SUBJECTIVE No acute events overnight. No complaints currently. Denies chest pain, shortness of breath, or calf pain. No nausea or vomiting. Tolerating oral intake. Pain control difficult overnight, but improving. VITAL SIGNS Vital Signs Period Temp Pulse Resp BP Sys/Vazquez Pulse Ox Last 24 Hr 98.5 F-98.9 F 69-70 18-20 128-145/63-78 98 INTAKE/OUTPUT (LAST THREE SHIFTS) Intake & Output 06/27/18 06/28/18 06/28/18 23:59 07:59 15:59 Intake Total 250 Balance 250 PHYSICAL EXAMINATION General: Alert, oriented, cooperative and no distress Lower Extremity: Splint intact; Exposed skin intact, no lesions, rashes or ulcers noted. No tenderness to palpation. Unable to assess ankle ROM. Able to move toes. SILT toes and dorsal foot. DP pulse palpable 2+; Cap refill brisk DVT Exam: No evidence of DVT seen on physical exam; No cords or RLE calf tenderness; No significant RLE calf/ankle edema SCHEDULED MEDS Current Medications Aspirin (Ecotrin -) 325 mg PO BID [facility] Last Admin: 06/28/18 09:23 Dose: 325 mg Benzocaine/Menthol (Cepacol Lozenge -) 1 each MM PRN PRN PRN Reason: SORE THROAT Losartan Potassium (Cozaar -) 100 mg PO DAILY [facility] Last Admin: 06/28/18 09:23 Dose: 100 mg Nifedipine (Procardia Xl -) 30 mg PO DAILY [facility] Last Admin: 06/28/18 09:23 Dose: 30 mg Oxycodone HCl (Roxicodone -) 5 mg PO Q4H PRN PRN Reason: PAIN LEVEL 1-5 Last Admin: 06/28/18 09:23 Dose: 5 mg Senna (Senna -) 1 tab PO HS [facility] Last Admin: 06/27/18 21:11 Dose: 1 tab LABS CBC WBC 8.4 K/mm3 (4.0-10.0) 06/27/18 06:30 RBC 3.86 M/mm3 (3.60-5.2) 06/27/18 06:30 Hgb 11.6 GM/dL (10.7-15.3) 06/27/18 06:30 Hct 33.4 % (32.4-45.2) 06/27/18 06:30 MCV 86.5 fl (80-96) 06/27/18 06:30 MCH 30.2 pg (25.7-33.7) 06/27/18 06:30 MCHC 34.9 g/dl (32.0-36.0) 06/27/18 06:30 RDW 12.7 % (11.6-15.6) 06/27/18 06:30 Plt Count 182 K/MM3 (134-434) 06/27/18 06:30 MPV 10.3 fl (7.5-11.1) 06/27/18 06:30 Absolute Neuts (auto) 6.7 K/mm3 (1.5-8.0) 06/27/18 06:30 Neutrophils % 79.7 % (42.8-82.8) 06/27/18 06:30 Lymphocytes % 13.7 % (8-40) 06/27/18 06:30 Monocytes % 6.2 % (3.8-10.2) 06/27/18 06:30 Eosinophils % 0.0 % (0-4.5) D 06/27/18 06:30 Basophils % 0.4 % (0-2.0) 06/27/18 06:30 Nucleated RBC % 0 % (0-0) 06/27/18 06:30 IMAGING Postoperative radiographs show reduced ankle mortise and ankle hardware to be intact. ASSESSMENT AND PLAN 68 F s/p ORIF left ankle POD #2. Doing well. Stayed overnight for pain control. - Pain control: Transition to oral pain medications - DVT prophylaxis: Aspirin 325 BID - Ice/Elevation - Elevate HOB, encourage oral intake - Appreciate medical management (Nutrition optimization, decubitus precautions heel/sacrum) - PT/OT;NWB LLE - Dispo planning: Discharge home today. Instructions given to the patient yesterday. She may follow up in the office on Wednesday07/11/2018 10:00 AM for wound check and suture removal. A prescription for oxycodone and aspirin was sent to her pharmacy - [facility] on [address] Nate Hart, DO Orthopedic Surgery
--- NOTE | 2018-06-28 12:05 | PN ---
Teaching Attending Note Name of Resident: Glenroy Carter ATTENDING PHYSICIAN STATEMENT I saw and evaluated the patient. I reviewed the resident's note and discussed the case with the resident. I agree with the resident's findings and plan as documented. SUBJECTIVE:states pain has been controlled. denies CP, SOB, fever, chills, N/V/C /D OBJECTIVE: Last Vital Signs Temp Pulse Resp BP Pulse Ox 98.9 F 70 18 145/78 98 06/28/18 06:23 06/28/18 06:23 06/28/18 06:23 06/28/18 06:23 06/27/18 21:00 General NAD CV S1 S2 RRR no murmur/rub/gallop Lungs CTA B/L no wheezing/rales/rhonchi Extremities L foot bandage c/d/i. able to move toes. pulse intact ASSESSMENT AND PLAN: 68 yo F with PMhx of HTN, admitted with mechanical fall and trimalleolar fracture 1. Trimalleloar fracture-due to mechanical fall. s/p Open reduction/internal fixation 06/25 tolerated surgery well. CAN PILER pump d/c yesterday and pain controlled with pain medication. has orthopedic f/u on 07/11. counselled on side effects of narcotics and to limit use for sever pain. NWB LLE. has been shown how to utilize crutches. full dose ASA until further notice. home PT and VNS established 2. HTN- controlled. 3. spoke wtih daughter present at bedside. all questions answered. verbalized understanding and agreement with plan.
[2018-06-28 15:22] VITALS: BP 146/70; PULSE 75; TEMP 99.2
== END 2018-06-28 15:35 | disposition home health service (06) | DRG 494 ==
LOC: JER 14:50 → JERBED 18:56 → J8W 06-26 11:43
PROVIDERS: ADMIT Internal Medicine; ATTEND Internal Medicine
PROC: 2W3RX1Z Immobilization of Left Lower Leg using Splint (ICD-10-PCS; principal; 2018-06-25)
PROC: 0QSK04Z Reposition Left Fibula with Internal Fixation Device, Open Approach (ICD-10-PCS; 2018-06-26)
PROC: 0QSH04Z Reposition Left Tibia with Internal Fixation Device, Open Approach (ICD-10-PCS; 2018-06-26)
DX: S82.842A Displaced bimalleolar fracture of left lower leg, initial encounter for closed fracture (principal); W01.0XXA Fall on same level from slipping, tripping and stumbling without subsequent striking against object, initial encounter; Y92.480 Sidewalk as the place of occurrence of the external cause; I10 Essential (primary) hypertension
CPT/HCPCS: 36415; 71045-TC-FY; 73610-TC-LT-FY; 73630-TC-LT; 76000-TC-FY; 80048; 80053; 81003; 82550; 82553; 84484; 85025; 85027; 85610; 85730; 86850; 86900; 86901; 93005; 93010; 94760; 97116-GP; 97162-GP; 99285-25; J1644

== ENCOUNTER 2018-07-25 07:32 | Inpatient (IN) | payer OTHER ==
--- NOTE | 2018-07-25 08:11 | HP ---
History & Physical Update - History History: Change (see notes) (Jennifer Reese is 4 weeks s/p left ankle ORIF. She presented to my office yesterday complaining of drainage from the distal aspect of her medial incision. She noticed the drainage 2 days ago. She is otherwise in good health and has no fever, chills or constitutional symptoms.) - Physical Currently as noted:: Left ankle shows superficial wound dehiscence of the medial incision - Assessment Currently as noted:: 68F s/p Left Ankle ORIF w/ wound drainage and superifical wound dehiscence - Plan Currently as noted:: OR today for I&D/wound closure
[2018-07-25 08:19] VITALS: BMI 26.6
[2018-07-25] MEDS ORDERED: MIDAZOLAM HCL 2 MG/2 ML SINGLE DOSE VIAL ONE (09:35)
[2018-07-25] MEDS ORDERED: PROPOFOL 20 ML ONE ×2 (09:35→10:31)
[2018-07-25] MEDS ORDERED: LIDOCAINE HCL/PF 2% SDV 5ML VIAL ONE (09:36)
[2018-07-25] MEDS ORDERED: BUPIVACAINE HCL/PF 0.25% (2.5MG/ML) 10 ML VIAL ONE (09:40)
[2018-07-25] MEDS ORDERED: PROMETHAZINE HCL 25 MG/1 ML VIAL IVPUSH PRN (09:44)
[2018-07-25] MEDS ORDERED: ONDANSETRON 4 MG/2 ML VIAL IVPUSH PRN (09:44)
[2018-07-25] MEDS ORDERED: LACTATED RINGERS SOLUTION 1,000 ML IV SCH ×2 (09:45→12:11)
[2018-07-25] MEDS ORDERED: VANCOMYCIN 1,000 MG VIAL (RESTRICTED TO ID ONLY) ONE (10:01)
[2018-07-25] MEDS ORDERED: SODIUM CHLORIDE 0.9% P/F 10 ML VIAL IJ ONE ×2 (10:01→10:25)
[2018-07-25] MEDS ORDERED: VANCOMYCIN 1 GRAM (PRE-DOCKED) 1,000 MG/250 ML BAG IVPB ONE (10:03)
[2018-07-25] MEDS ORDERED: BUPIVACAINE HCL/PF 0.25% (2.5MG/ML) 10 ML VIAL IJ ONE ×2 (10:20)
[2018-07-25] MEDS ORDERED: ceFAZolin SODIUM 1 GM VIAL IVPB ONE (10:25)
[2018-07-25] MEDS ORDERED: ceFAZolin SODIUM 1 GM VIAL ONE (10:25)
[2018-07-25] MEDS ORDERED: ceFAZolin 2 GRAM PREMIX BAG IVPB ONE (10:25)
[2018-07-25] MEDS ORDERED: KETOROLAC TROMETHAMINE 30 MG/1 ML VIAL ONE (10:34)
[2018-07-25] MEDS ORDERED: oxyCODONE HCL 5 MG TABLET PO PRN ×3 (11:52→12:11)
[2018-07-25] MEDS ORDERED: MAG HYDROX/AL HYDROX/SIMETH 30 ML UNIT-DOSE CUP PO PRN (12:11)
[2018-07-25] MEDS: NIFEdipine E.R. 30 MG TABLET (FP) PO SCH (12:40)
[2018-07-25] MEDS: LOSARTAN POTASSIUM 50 MG TABLET (FP) PO SCH (12:40)
[2018-07-25 12:46] LABS: BASO % 0.5 % (0-2.0); EOS % 1.1 % (0-4.5); HEMATOCRIT 35.6 % (32.4-45.2); HEMOGLOBIN 11.5 GM/dL (10.7-15.3); LYMPH % 24.8 % (8-40); MCH 28.3 pg (25.7-33.7); MCHC 32.3 g/dl (32.0-36.0); MEAN CELL VOLUME 87.7 fl (80-96); MEAN PLT VOLUME 10.1 fl (7.5-11.1); NEUT % 65.6 % (42.8-82.8); PLATELET COUNT 206 K/MM3 (134-434); RBC 4.06 M/mm3 (3.60-5.2); RDW 13.1 % (11.6-15.6); WHITE BLOOD COUNT 6.1 K/mm3 (4.0-10.0)
[2018-07-25] MEDS: VANCOMYCIN 1 GRAM (PRE-DOCKED) 1,000 MG/250 ML BAG IVPB SCH (13:00)
--- NOTE | 2018-07-25 13:29 | OPR ---
Date of Surgery: 07/25/2018 Procedure: Left Ankle Irrigation and Debridement of superficial wound infection and wound dehiscence. Preoperative Diagnoses: Left Ankle Superficial Wound Infection and superficial wound dehiscence. Postoperative Diagnoses: Left Ankle Superficial Wound Infection and superficial wound dehiscence. Surgeon: Nate Hart DO Assistants: Dereck Rodrigez DO Anesthesia: Sedation Estimated Blood Loss: Minimal Drains: none Total IV Fluids: per anesthesia record Specimens: Cultures x 3 Implants: None Complications: None Disposition: PACU Condition: Hemodynamically stable Indications: Jennifer Reese presented to us with the above noted diagnoses. The patient and their family ultimately elected to proceed with surgical intervention after discussion of the risks, benefits, alternatives. We discussed risks including but not limited to, bleeding, pain, infection, scarring, damage to neurovascular structures, blood clots, pulmonary embolus, need for additional surgery, incomplete relief of pain, and incomplete return of function. The patient and family expressed understanding and wished to proceed. Procedure Details: She was identified in the preoperative area. The left ankle was marked as the operative site and consent was completed and confirmed with the family. Sedation was induced without difficulty. She was placed onto the table with all bony prominences appropriately padded. The neck was in neutral alignment. A surgical time-out was performed identifying the correct patient, procedure, and site. Antibiotics were held until after intraoperative cultures were obtained. A tourniquet was applied to the thigh. The left lower extremity was then prepped with betadyne and draped in a standard sterile fashion. The tourniquet was inflated for a total of 18 minutes. An incision was made throught the existing medial incision with a scalpel, and then dissection done with Metzenbaum scissors and hemostasis was maintained. There was no purulent drainage. Vicryl sutures were removed. Cultures swabs were obtained and sent for culture. No hardware was exposed. The wound was thoroughly irrigated and debrided. 9 liters of saline irrigation was used. Contaminated equipment was passed off, and gloves and drapes were changed. The wound was closed with 3-0 Nylon and dressed with xeroform, gauze and a sterile webril. A well padded trilaminar splint was placed on the left lower extremity. The patient was then transferred from the table to a hospital bed and to the PACU in stable condition after being awoken from anesthesia. Attestation for certified surgical first assistant: Dereck Rodrigez DO acted as the certified surgical first assistant. There was no qualified resident available to do so. I spoke with the family regarding the operation after surgery. Postoperative Plan: - NWB in splint - Ice and Elevate LLE - Vancomycin - FU ID Consult - FU OR Cultures x 3 - FU Pre-op ESR and CRP - DVT prophylaxis (Lovenox while in the hospital, SCD, ambulation with assist; DC on Aspirin 325 mg po BID) - Dressing change at follow up - Suture removal in 2 weeks Nate Hart DO Orthopedic Surgery
[2018-07-25 14:38] LABS: ERYTHROCYTE SEDIMENTATION RATE 14 mm/hr (0-30)
--- NOTE | 2018-07-25 16:14 | CON.ID ---
Consult Consult Specialty:: infectious disease Referred by:: wilda Reason for Consultation:: wound infection - History of Present Illness Chief Complaint: erythema at incision site History of Present Illness: 68 yo female s/p left ankle orif 4 weeks ago on Wednesday she noted some draiange and erythema from the distal aspect of the wound she started keflex on Wednesday and was seen by ortho on Wednesday- he drained some fluid from the incision- and admitted her for operative wound exploration today took total 4 pills as outpt she got ancef in the OR no fevers or chills d/w dr astudillo- he feels wound was superficial- cultures sent now in [facility] waiting for bed - History Source History Provided By: Patient, Medical Record - Past Medical History Cardio/Vascular: Yes: HTN - Past Surgical History Past Surgical History: Yes: None - Alcohol/Substance Use Hx Alcohol Use: No History of Substance Use: reports: None - Smoking History Smoking history: Never smoked Have you smoked in the past 12 months: No - Social History Usual Living Arrangement: With Child ADL: Independent Occupation: electromedical equipment technician History of Recent Travel: No Home Medications - Allergies Allergies/Adverse Reactions: Allergies Allergy/AdvReac Type Severity Reaction Status Date / Time No Known Allergies Allergy Verified 07/25/18 08:21 - Home Medications Home Medications: Ambulatory Orders Losartan Potassium 100 mg PO DAILY 06/25/18 Nifedipine [Procardia Xl] 30 mg PO DAILY 06/25/18 Aspirin Coated [Ecotrin -] 325 mg PO BID tablet. 06/27/18 oxyCODONE HCL [Roxicodone -] 5 mg PO Q4H PRN #10 tablet MDD 6 06/27/18 Family Disease History - Family Disease History Family Disease History: Other: Grandparent, Mother Review of Systems - Review of Systems Constitutional: reports: No Symptoms Eyes: reports: No Symptoms HENT: reports: No Symptoms Neck: reports: No Symptoms Cardiovascular: reports: No Symptoms Respiratory: reports: No Symptoms Gastrointestinal: reports: No Symptoms Genitourinary: reports: No Symptoms Physical Exam Vital Signs: Vital Signs Temperature 98.0 F 07/25/18 11:05 Pulse Rate 58 L 07/25/18 14:45 Respiratory Rate 15 07/25/18 14:45 Blood Pressure 160/87 07/25/18 14:45 O2 Sat by Pulse Oximetry (%) 100 07/25/18 14:45 Constitutional: Yes: Well Nourished, No Distress, Calm Eyes: Yes: Conjunctiva Clear HENT: Yes: Atraumatic, Normocephalic Neck: Yes: Supple Cardiovascular: Yes: Regular Rate and Rhythm Respiratory: Yes: Regular, CTA Bilaterally Gastrointestinal: Yes: Normal Bowel Sounds, Soft ...Rectal Exam: Yes: Deferred Extremities: Yes: Other (dressing intact) Labs: CBC, BMP 07/25/18 11:56 Problem List - Problems (1) Bimalleolar ankle fracture Code(s): S82.843A - DISPLACED BIMALLEOLAR FRACTURE OF UNSP LOWER LEG, INIT (2) Wound infection Code(s): T14.8XXA - OTHER INJURY OF UNSPECIFIED BODY REGION, INITIAL ENCOUNTER; L08.9 - LOCAL INFECTION OF THE SKIN AND SUBCUTANEOUS TISSUE, UNSP Assessment/Plan will cover with vancomycin and cefepime pending cultures- further reccd to follow- d/w dr astudillo
[2018-07-25] MEDS: ACETAMINOPHEN 500 MG TABLET (FP) PO SCH ×2 (16:30→20:16)
[2018-07-25] MEDS: CEFEPIME 1 GM in DEXTROSE 5%-WATER - 100 ML IVPB SCH ×2 (17:25→18:46)
[2018-07-25] MEDS ORDERED: CEFEPIME 1 GM in DEXTROSE 5%-WATER - 50 ML IVPB SCH (18:00)
[2018-07-25] MEDS: ESCITALOPRAM OXALATE 10 MG TABLET (FP) PO SCH (20:16)
[2018-07-25] MEDS: SENNOSIDES/DOCUSATE COMBO (SENNA PLUS) TABLET (UD) PO SCH (21:28)
[2018-07-25] MEDS: diphenhydrAMINE HCL 25 MG CAPSULE (FP) PO PRN (21:32)
[2018-07-26] MEDS: ACETAMINOPHEN 500 MG TABLET (FP) PO SCH ×4 (00:02→17:53)
[2018-07-26] MEDS: VANCOMYCIN 1 GRAM (PRE-DOCKED) 1,000 MG/250 ML BAG IVPB SCH ×2 (00:05→14:42)
[2018-07-26] MEDS: CEFEPIME 1 GM in DEXTROSE 5%-WATER - 100 ML IVPB SCH ×2 (02:12→12:17)
[2018-07-26 07:51] LABS: HEMATOCRIT 33.7 % (32.4-45.2); HEMOGLOBIN 11.2 GM/dL (10.7-15.3); MCH 28.6 pg (25.7-33.7); MCHC 33.2 g/dl (32.0-36.0); MEAN CELL VOLUME 86.4 fl (80-96); MEAN PLT VOLUME 9.9 fl (7.5-11.1); PLATELET COUNT 179 K/MM3 (134-434); RDW 12.9 % (11.6-15.6); WHITE BLOOD COUNT 5.4 K/mm3 (4.0-10.0)
[2018-07-26 08:11] LABS: ANION GAP 7 MMOL/L (8-16); BLOOD UREA NITROGEN 14 mg/dL (7-18); CALCIUM 8.3 mg/dL (8.5-10.1); CHLORIDE 108 mmol/L (98-107); CO2 27 mmol/L (21-32); CREATININE 0.8 mg/dL (0.55-1.3); GLUCOSE,RANDOM 92 mg/dL (74-106); POTASSIUM 3.8 mmol/L (3.5-5.1); SODIUM 142 mmol/L (136-145)
--- NOTE | 2018-07-26 08:48 | PN ---
Progress Note (short form) - Note Progress Note: ANESTHESIOLOGY POST-OP CHECK 68F s/p ankle wound closure under general anesthesia, POD #1. No acute complaints. Denies N/V. Pain minimal and tolerable. Vital Signs Temperature 98.6 F 07/26/18 06:00 Pulse Rate 60 07/26/18 06:00 Respiratory Rate 18 07/26/18 06:00 Blood Pressure 146/81 07/26/18 06:00 O2 Sat by Pulse Oximetry (%) 95 07/25/18 18:00 Active Medications Acetaminophen (Tylenol -) 500 mg PO Q6H DARREN Last Admin: 07/26/18 05:46 Dose: Not Given Al Hydroxide/Mg Hydroxide (Mylanta Oral Suspension -) 30 ml PO Q4H PRN PRN Reason: DYSPEPSIA Diphenhydramine HCl (Benadryl -) 25 mg PO HS PRN PRN Reason: INSOMNIA Last Admin: 07/25/18 21:32 Dose: 25 mg Enoxaparin Sodium (Lovenox -) 40 mg SQ DAILY [facility] Escitalopram Oxalate (Lexapro -) 10 mg PO DAILY [facility] Last Admin: 07/25/18 20:16 Dose: Not Given Vancomycin HCl (Vancomycin (Pre-Docked)) 1,000 mg in 250 mls @ 166.667 mls/hr IVPB Q12H DARREN; Protocol Last Admin: 07/26/18 00:05 Dose: 166.667 mls/hr Cefepime HCl 1 gm/ Dextrose 100 mls @ 100 mls/hr IVPB Q8H-IV DARREN; Protocol Last Admin: 07/26/18 02:12 Dose: 100 mls/hr Losartan Potassium (Cozaar -) 100 mg PO DAILY [facility] Last Admin: 07/25/18 12:40 Dose: 100 mg Multivitamins/Minerals/Vitamin C (Tab-A-Vit -) 1 tab PO DAILY [facility] Nifedipine (Procardia Xl -) 30 mg PO DAILY [facility] Last Admin: 07/25/18 12:40 Dose: 30 mg Oxycodone HCl (Roxicodone -) 10 mg PO Q4H PRN PRN Reason: PAIN LEVEL 6-10 Oxycodone HCl (Roxicodone -) 5 mg PO Q4H PRN PRN Reason: PAIN LEVEL 1-5 Stop: 07/28/18 11:54 Senna/Docusate Sodium (Pericolace -) 1 tablet PO BID DARREN Last Admin: 07/25/18 21:28 Dose: 1 tablet Gen: awake, alert, NAD No apparent anesthesia complications. Pain controlled. Continue management as per primary team.
--- NOTE | 2018-07-26 09:27 | PN ---
Progress Note (short form) - Note Progress Note: doing well pod #1 Vital Signs Period Temp Pulse Resp BP Sys/Vazquez Pulse Ox Last 24 Hr 98 F-98.6 F 47-74 13-23 117-182/57-88 95-100 cor-rrr lungs clear abd soft,nt ext no edema CBC, BMP 07/26/18 06:00 07/26/18 06:00 Laboratory Tests 07/25/18 07/25/18 11:56 11:56 ESR 14 C-Reactive Protein 0.5 H Microbiology 07/25/18 11:00 Ankle - Left Medial Gram Stain - Final 07/25/18 11:00 Ankle - Left Medial Wound Culture - Preliminary NO GROWTH OBTAINED AFTER 24 HOURS INCUBATION, REINCUBATED. a/p wound infection will examine wound in am with ortho hopefully switch to po antibiotics in am d/w ortho Problem List - Problems (1) Bimalleolar ankle fracture Code(s): S82.843A - DISPLACED BIMALLEOLAR FRACTURE OF UNSP LOWER LEG, INIT (2) Wound infection Code(s): T14.8XXA - OTHER INJURY OF UNSPECIFIED BODY REGION, INITIAL ENCOUNTER; L08.9 - LOCAL INFECTION OF THE SKIN AND SUBCUTANEOUS TISSUE, UNSP
--- NOTE | 2018-07-26 09:51 | PN ---
Progress Note (short form) - Note Progress Note: ORTHOPEDIC SURGERY PROGRESS NOTE Department of Orthopedic Surgery SUBJECTIVE No acute events overnight. No complaints currently. Denies chest pain, shortness of breath, or calf pain. No nausea or vomiting. Tolerating oral intake. Pain controlled. PHYSICAL EXAMINATION General: Alert, oriented, cooperative and no distress. Lower Extremity: Splint intact; Palpable compartments soft and compressible. No tenderness to palpation. Full passive and active ROM of toes free from pain. SILT distally over toes and palpable areas of foot; 2+ DP pulses; Cap refill brisk. DVT Exam: No evidence of DVT seen on physical exam; No RLE cords or calf tenderness; No significant RLE calf/ankle edema. Intake & Output 07/24/18 07/25/18 07/26/18 23:59 23:59 23:59 Intake Total 1150 1106 Balance 1150 1106 Intake: IV 1150 756 Lactated Ringers Solution 756 1,000 ml @ 84 mls/hr IV ASDIR DARREN Rx#:[id number] IVPB 350 Other: Weight 160 lb Height 5 ft 5 in Body Mass Index (BMI) 26.6 Weight Measurement Method Stated by Patient Active Medications Generic Name Dose Route Start Last Admin Trade Name Freq PRN Reason Stop Dose Admin Acetaminophen 500 mg 07/25/18 12:00 07/26/18 05:46 Tylenol - PO Not Given Q6H [facility] Al Hydroxide/Mg Hydroxide 30 ml 07/25/18 12:11 Mylanta Oral Suspension - PO Q4H PRN DYSPEPSIA Diphenhydramine HCl 25 mg 07/25/18 19:14 07/25/18 21:32 Benadryl - PO 25 mg HS PRN Administration INSOMNIA Enoxaparin Sodium 40 mg 07/26/18 10:00 Lovenox - SQ DAILY [facility] Escitalopram Oxalate 10 mg 07/25/18 12:00 07/25/18 20:16 Lexapro - PO Not Given DAILY [facility] Vancomycin HCl 1,000 mg in 250 mls @ 166.667 mls/hr 07/25/18 13:00 07/26/18 00:05 Vancomycin (Pre-Docked) IVPB 166.667 mls/hr Q12H DARREN Administration Protocol Cefepime HCl 1 gm/ Dextrose 100 mls @ 100 mls/hr 07/25/18 18:00 07/26/18 02: 12 IVPB 100 mls/hr Q8H-IV DARREN Administration Protocol Losartan Potassium 100 mg 07/25/18 12:00 07/25/18 12:40 Cozaar - PO 100 mg DAILY DARREN Administration Multivitamins/Minerals/Vitamin C 1 tab 07/26/18 10:00 Tab-A-Vit - PO DAILY DARREN Nifedipine 30 mg 07/25/18 12:00 07/25/18 12:40 Procardia Xl - PO 30 mg DAILY DARREN Administration Oxycodone HCl 10 mg 07/25/18 11:52 Roxicodone - PO Q4H PRN PAIN LEVEL 6-10 Oxycodone HCl 5 mg 07/25/18 11:54 Roxicodone - PO 07/28/18 11:54 Q4H PRN PAIN LEVEL 1-5 Senna/Docusate Sodium 1 tablet 07/25/18 22:00 07/25/18 21:28 Pericolace - PO 1 tablet BID DARREN Administration Vital Signs (last) Temp Pulse Resp BP Pulse Ox 98.6 F 60 18 146/81 95 07/26/18 06:00 07/26/18 06:00 07/26/18 06:00 07/26/18 06:00 07/25/18 18:00 Laboratory 07/26/18 06:00 07/26/18 06:00 ASSESSMENT AND PLAN Jennifer Reese is a 68 year old female POD #1 s/p left ankle wound exploration, irrigation and debridement, and wound closure. - Appreciate ID Consult; will c/w antibiotics as per their recommendation - FU OR Culturess: currently NGTD - Pain control - DVT prophylaxis: Lovenox, SCD, early ambulation with PT - Ice/Elevation - Elevate HOB, encourage oral intake - PT/OT; NWB LLE
[2018-07-26] MEDS: NIFEdipine E.R. 30 MG TABLET (FP) PO SCH (09:52)
[2018-07-26] MEDS: ESCITALOPRAM OXALATE 10 MG TABLET (FP) PO SCH (09:52)
[2018-07-26] MEDS: SENNOSIDES/DOCUSATE COMBO (SENNA PLUS) TABLET (UD) PO SCH ×2 (09:52→21:11)
[2018-07-26] MEDS: LOSARTAN POTASSIUM 50 MG TABLET (FP) PO SCH (09:52)
[2018-07-26] MEDS: ENOXAPARIN NA (PORCINE) 40 MG/0.4 ML DISP.SYRIN SQ SCH (09:52)
[2018-07-26] MEDS: MULTIVITAMINS (DAILY MVI) TABLET (FP) PO SCH (09:52)
[2018-07-26] MEDS ORDERED: ASPIRIN 325 MG TABLET PO SCH (10:00)
[2018-07-26] MEDS ORDERED: CEFEPIME HCL 1 GM VIAL (RESTRICTED TO ID) ONE ×2 (16:48→23:55)
[2018-07-26] MEDS ORDERED: DEXTROSE 5%-WATER 100 ML IVPB ONE (16:48)
[2018-07-26] MEDS: CEFEPIME 1 GM in DEXTROSE 5%-WATER 100 ML IVPB SCH (17:53)
[2018-07-26] MEDS: diphenhydrAMINE HCL 25 MG CAPSULE (FP) PO PRN (21:11)
[2018-07-26] MEDS ORDERED: DEXTROSE 5%-WATER 200 ML IVPB ONE (23:55)
[2018-07-27] MEDS: ACETAMINOPHEN 500 MG TABLET (FP) PO SCH ×3 (00:16→11:36)
[2018-07-27] MEDS: VANCOMYCIN 1 GRAM (PRE-DOCKED) 1,000 MG/250 ML BAG IVPB SCH ×2 (00:51→13:33)
[2018-07-27] MEDS: CEFEPIME 1 GM in DEXTROSE 5%-WATER 100 ML IVPB SCH ×2 (02:37→10:00)
--- NOTE | 2018-07-27 09:33 | PN ---
Progress Note (short form) - Note Progress Note: ORTHOPEDIC SURGERY PROGRESS NOTE Department of Orthopedic Surgery SUBJECTIVE No acute events overnight. No complaints currently. Denies chest pain, shortness of breath, or calf pain. No nausea or vomiting. Tolerating oral intake. Pain controlled. PHYSICAL EXAMINATION General: Alert, oriented, cooperative and no distress. Left Lower Extremity: Dressing/splint intact; U-splint removed and medial wound inspected. No drainage, sutures intact, mild erythema around wound. Skin otherwise intact, no additional lesions, rashes or ulcers noted. No atrophy noted. No masses or effusions noted. No tenderness to palpation. LROM secondary to splint placement. Dressing changed with sterile 4x4's and splint replaced and wrapped with EFRAÍN bandage. EHL/FHL motor intact; SILT distally; 2+ DP pulses ; Cap refill brisk. DVT Exam: No evidence of DVT seen on physical exam; No cords or calf tenderness ; No significant calf/ankle edema. Intake & Output 07/25/18 07/26/18 07/27/18 23:59 23:59 23:59 Intake Total 1150 1506 350 Output Total 600 Balance 1150 906 350 Intake: IV 1150 756 Lactated Ringers Solution 756 1,000 ml @ 84 mls/hr IV ASDIR DARREN Rx#:[id number] IVPB 350 350 Oral 400 Output: Urine 600 Void 600 Other: Bowel Movement No Weight 160 lb Height 5 ft 5 in Body Mass Index (BMI) 26.6 Weight Measurement Method Stated by Patient Active Medications Generic Name Dose Route Start Last Admin Trade Name Freq PRN Reason Stop Dose Admin Acetaminophen 500 mg 07/25/18 12:00 07/27/18 06:21 Tylenol - PO Not Given Q6H [facility] Al Hydroxide/Mg Hydroxide 30 ml 07/25/18 12:11 Mylanta Oral Suspension - PO Q4H PRN DYSPEPSIA Diphenhydramine HCl 25 mg 07/25/18 19:14 07/26/18 21:11 Benadryl - PO 25 mg HS PRN Administration INSOMNIA Enoxaparin Sodium 40 mg 07/26/18 10:00 07/26/18 09:52 Lovenox - SQ 40 mg DAILY DARREN Administration Escitalopram Oxalate 10 mg 07/25/18 12:00 07/26/18 09:52 Lexapro - PO 10 mg DAILY DARREN Administration Vancomycin HCl 1,000 mg in 250 mls @ 166.667 mls/hr 07/25/18 13:00 07/27/18 00:51 Vancomycin (Pre-Docked) IVPB 166.667 mls/hr Q12H DARREN Administration Protocol Cefepime HCl 1 gm/ Dextrose 100 mls @ 100 mls/hr 07/26/18 18:00 07/27/18 02: 37 IVPB 100 mls/hr Q8H-IV DARREN Administration Protocol Losartan Potassium 100 mg 07/25/18 12:00 07/26/18 09:52 Cozaar - PO 100 mg DAILY [facility] Administration Multivitamins/Minerals/Vitamin C 1 tab 07/26/18 10:00 07/26/18 09:52 Tab-A-Vit - PO 1 tab DAILY [facility] Administration Nifedipine 30 mg 07/25/18 12:00 07/26/18 09:52 Procardia Xl - PO 30 mg DAILY [facility] Administration Oxycodone HCl 10 mg 07/25/18 11:52 Roxicodone - PO Q4H PRN PAIN LEVEL 6-10 Oxycodone HCl 5 mg 07/25/18 11:54 Roxicodone - PO 07/28/18 11:54 Q4H PRN PAIN LEVEL 1-5 Senna/Docusate Sodium 1 tablet 07/25/18 22:00 07/26/18 21:11 Pericolace - PO 1 tablet BID DARREN Administration Vital Signs (last) Temp Pulse Resp BP Pulse Ox 98.3 F 64 20 151/80 95 07/27/18 08:14 07/27/18 08:14 07/27/18 08:14 07/27/18 08:14 07/25/18 18:00 Laboratory 07/26/18 06:00 07/26/18 06:00 ASSESSMENT AND PLAN Jennifer Reese is a 68 year old female POD #2 s/p left ankle wound exploration, irrigation and debridement, and wound closure. - Appreciate ID Consult; will c/w antibiotics as per their recommendation - FU OR Culturess: currently NGTD - Pain control - DVT prophylaxis: Lovenox, SCD, early ambulation with PT - Ice/Elevation - Elevate HOB, encourage oral intake - PT/OT; NWB LLE
[2018-07-27] MEDS ORDERED: DEXTROSE 5%-WATER 100 ML IVPB ONE (09:52)
[2018-07-27] MEDS ORDERED: CEFEPIME HCL 1 GM VIAL (RESTRICTED TO ID) ONE (09:52)
[2018-07-27] MEDS: MULTIVITAMINS (DAILY MVI) TABLET (FP) PO SCH (09:59)
[2018-07-27] MEDS: LOSARTAN POTASSIUM 50 MG TABLET (FP) PO SCH (09:59)
[2018-07-27] MEDS: ENOXAPARIN NA (PORCINE) 40 MG/0.4 ML DISP.SYRIN SQ SCH (10:00)
[2018-07-27] MEDS: NIFEdipine E.R. 30 MG TABLET (FP) PO SCH (10:00)
[2018-07-27] MEDS: ESCITALOPRAM OXALATE 10 MG TABLET (FP) PO SCH (10:00)
[2018-07-27] MEDS: SENNOSIDES/DOCUSATE COMBO (SENNA PLUS) TABLET (UD) PO SCH (10:00)
--- NOTE | 2018-07-27 13:55 | PN ---
Progress Note (short form) - Note Progress Note: doing well pod #2 Vital Signs Period Temp Pulse Resp BP Sys/Vazquez Pulse Ox Last 24 Hr 98.2 F-98.6 F 62-70 16-20 132-151/62-80 cor-rrr lungs clear abd soft,nt ext wound clean and dry- minimal erythema- examined with ortho this am Laboratory Tests 07/25/18 07/25/18 11:56 11:56 ESR 14 C-Reactive Protein 0.5 H CBC, BMP 07/26/18 06:00 07/26/18 06:00 Microbiology 07/25/18 12:50 Blood - Peripheral Venous Blood Culture - Preliminary NO GROWTH OBTAINED AFTER 48 HOURS, INCUBATION TO CONTINUE FOR 3 DAYS. 07/25/18 12:58 Blood - Peripheral Venous Blood Culture - Preliminary NO GROWTH OBTAINED AFTER 48 HOURS, INCUBATION TO CONTINUE FOR 3 DAYS. 07/25/18 11:00 Ankle - Left Medial Gram Stain - Final 07/25/18 11:00 Ankle - Left Medial Wound Culture - Final NO GROWTH AFTER 48 HOURS INCUBATION a/p superficial wound infection gram stain negative cultures are negative plan switch to po keflex 500 qid for two weeks with close ortho followup Problem List - Problems (1) Bimalleolar ankle fracture Code(s): S82.843A - DISPLACED BIMALLEOLAR FRACTURE OF UNSP LOWER LEG, INIT (2) Wound infection Code(s): T14.8XXA - OTHER INJURY OF UNSPECIFIED BODY REGION, INITIAL ENCOUNTER; L08.9 - LOCAL INFECTION OF THE SKIN AND SUBCUTANEOUS TISSUE, UNSP
--- NOTE | 2018-07-27 14:40 | DS ---
Physical Examination Vital Signs: Vital Signs Temperature 98.3 F 07/27/18 08:14 Pulse Rate 64 07/27/18 08:14 Respiratory Rate 20 07/27/18 08:14 Blood Pressure 151/80 07/27/18 08:14 O2 Sat by Pulse Oximetry (%) 95 07/25/18 18:00 Constitutional: Yes: Well Nourished Cardiovascular: Yes: Regular Rate and Rhythm Respiratory: Yes: Regular Gastrointestinal: Yes: Soft Musculoskeletal: Yes: Other (LLE in splint clean and dry Moving toes SITLT toes and foot incision clean and dry; no drainage; sutures intact; CR brisk) Labs: CBC, BMP 07/26/18 06:00 07/26/18 06:00 Discharge Summary Reason For Visit: ANKLE INFECTION Current Active Problems Wound infection (Acute) Procedures: Principal: Left ankle irrigation and debridement Hospital Course: The patient is a 68 year old female status post irrigation and debridement of left ankle wound. She was taken to the operating room on 07/25/2018. Cultures were obtained and antibiotics were started in the OR. She was admitted to the hospital afterwards. There were no complications during the procedure and patient tolerated the procedure well. The patient was transferred to recovery room in stable condition and subsequently to surgical floor. An ID consult was obtained and postoperatively and IV antibiotics were continued throughout her hospital stay. Patient was placed on Lovenox for anticoagulation. All home medications were continued. The patient received physical therapy daily and labs were followed. The Splint was kept clean, dry, intact and the wound was checked on POD 2. The rest of the hospital stay was unremarkable. OR cultures were negative. The patient was discharged in stable condition to follow up as outpatient. She will continue with oral antibiotics for 2 weeks. Condition: Stable - Instructions Diet, Activity, Other Instructions: Continue Regular Diet Keep splint clean and dry Non-weight bearing left lower extremity Follow up in the office in 1 week. Call the office for an appointment. Continue with oxycodone 5 mg as prescribed (one pill every 6 hours as needed for pain) Continue with aspirin 325 mg as prescribed (one pill twice per day) Continue with antibiotics as prescribed (keflex 500 mg by mouth every 6 hours) for 2 weeks (sent to pharmacy) Call the office sooner if you develop any fever (Temperature > 100.4F), chills, night sweats, chest pain, shortness of breath, or calf pain. Call the office with any questions [phone] Referrals: Nate Hart DO [Staff Physician] - Disposition: HOME - Home Medications Comprehensive Discharge Medication List: Ambulatory Orders Losartan Potassium 100 mg PO DAILY 06/25/18 Nifedipine [Procardia Xl] 30 mg PO DAILY 06/25/18 Aspirin Coated [Ecotrin -] 325 mg PO BID tablet. 06/27/18 oxyCODONE HCL [Roxicodone -] 5 mg PO Q4H PRN #10 tablet MDD 6 06/27/18 Crutch 1 each ONCE #1 each 07/27/18 Begin the following medication (sent to your pharmacy) Keflex 500 mg PO (oral) one tablet every 6 hours. Continue for 2 weeks.
[2018-07-27 15:04] VITALS: BP 129/74; PULSE 62; TEMP 98.5
== END 2018-07-27 18:03 | disposition home or self-care (01) | DRG 921 ==
LOC: JASU-SURG 07:32 → JSAMEDAYSX 09:12 → J6S 18:30
PROVIDERS: ADMIT Orthopaedic Surgery; ATTEND Orthopaedic Surgery
PROC: 3E10X8Z Irrigation of Skin and Mucous Membranes using Irrigating Substance (ICD-10-PCS; 2018-07-25)
PROC: 0HDLXZZ Extraction of Left Lower Leg Skin, External Approach (ICD-10-PCS; principal; 2018-07-25 10:30)
DX: T81.30XA Disruption of wound, unspecified, initial encounter (principal); Y83.8 Other surgical procedures as the cause of abnormal reaction of the patient, or of later complication, without mention of misadventure at the time of the procedure
CPT/HCPCS: 36415; 73610-TC-LT-FY; 76000-TC-FY; 80048; 85025; 85027; 85651; 86140; 86850; 86900; 86901; 87040; 87070; 87205; 94760; 97116-GP; 97161-GP; G0480

== ENCOUNTER 2021-06-01 14:38 | Inpatient (IN) | payer OTHER ==
[2021-06-01] MEDS ORDERED: SODIUM CHLORIDE 0.9% 500 ML INFUS.BAG IV ONE ×2 (15:14→18:09)
[2021-06-01 15:46] LABS: VENOUS BASE EXCESS 0.1 mmol/L (-2-2); VENOUS O2 SATURATION 38.7 % (70-80); VENOUS PCO2 33.3 mmHg (38-52); VENOUS PH 7.461 (7.310-7.410)
[2021-06-01 15:54] LABS: HEMATOCRIT 40.9 % (32.4-45.2); HEMOGLOBIN 13.7 GM/dL (10.7-15.3); MCH 28.8 pg (25.7-33.7); MCHC 33.5 g/dl (32.0-36.0); MEAN CELL VOLUME 86.1 fl (80-96); MEAN PLT VOLUME 10.5 fl (7.5-11.1); PLATELET COUNT 239 10^3/uL (134-434); RBC 4.76 M/mm3 (3.60-5.2); RDW 12.9 % (11.6-15.6); WHITE BLOOD COUNT 7.5 K/mm3 (4.0-10.0)
[2021-06-01 16:11] LABS: CHLORIDE 109 mmol/L (98-107); SODIUM 141 mmol/L (136-145)
[2021-06-01 16:12] LABS: CALCIUM 8.9 mg/dL (8.5-10.1)
[2021-06-01 16:13] LABS: ALBUMIN 3.2 g/dl (3.4-5.0); ANION GAP 7 MMOL/L (8-16); BLOOD UREA NITROGEN 28.5 mg/dL (7-18); CO2 25 mmol/L (21-32); GLUCOSE,RANDOM 119 mg/dL (74-106)
[2021-06-01 16:16] LABS: CREATININE 1.3 mg/dL (0.55-1.3); SGOT/AST 52 U/L (15-37); SGPT/ALT 37 U/L (13-61)
[2021-06-01 16:18] LABS: ALK PHOS 90 U/L (45-117); BILIRUBIN,TOTAL 0.9 mg/dL (0.2-1); TOT PROT 7.9 g/dl (6.4-8.2)
[2021-06-01 16:22] LABS: INR 1.11 (0.83-1.09); PROTHROMBIN TIME (PATIENT) 12.4 SEC (9.7-13.0)
[2021-06-01 16:24] LABS: ACTIVATED PTT 25.5 SECONDS (25.2-36.5)
[2021-06-01 16:51] LABS: LDH 542 U/L (84-246)
[2021-06-01] MEDS ORDERED: DEXAMETHASONE SOD PHOSPHATE 10 MG/1 ML VIAL IVPUSH ONE (18:09)
[2021-06-01] MEDS ORDERED: ONDANSETRON 4 MG/2 ML VIAL IVPUSH ONE (18:11)
[2021-06-01 18:32] LABS: BLOOD UREA NITROGEN 27.2 mg/dL (7-18); CALCIUM 8.6 mg/dL (8.5-10.1)
[2021-06-01] MEDS ORDERED: ONDANSETRON 4 MG/2 ML VIAL ONE (18:33)
[2021-06-01] MEDS ORDERED: DEXAMETHASONE SOD PHOSPHATE 10 MG/1 ML VIAL ONE (18:33)
[2021-06-01 18:35] LABS: CREATININE 1.2 mg/dL (0.55-1.3)
[2021-06-01 18:37] LABS: BILIRUBIN,TOTAL 0.6 mg/dL (0.2-1); TOT PROT 7.4 g/dl (6.4-8.2)
[2021-06-01] MEDS ORDERED: HEPARIN NA (PORCINE) 5,000 UNITS/ML 1ML VIAL SQ SCH (21:30)
[2021-06-02] MEDS ORDERED: guaiFENesin/D-METHORPHAN HB 10 ML UNIT-DOSE CUPS PO PRN (03:24)
[2021-06-02] MEDS ORDERED: PT OWN MED DRAWER 7, Y5N ONE ×2 (09:46→10:54)
[2021-06-02] MEDS: ASCORBIC ACID 500 MG TABLET (FP) PO SCH ×3 (09:56→21:41)
[2021-06-02] MEDS: ZINC SULFATE 220 MG CAPSULE (FP) PO SCH (09:56)
[2021-06-02] MEDS: CHOLECALCIFEROL (VIT D3) 1,000 UNIT (25 MCG) TABLET PO SCH (09:56)
[2021-06-02] MEDS: LOSARTAN POTASSIUM 50 MG TABLET PO SCH (09:56)
[2021-06-02] MEDS: NIFEdipine E.R. 30 MG TABLET PO SCH (09:56)
[2021-06-02] MEDS ORDERED: ZINC SULFATE 220 MG CAPSULE (FP) PO SCH (10:00)
[2021-06-02 10:13] LABS: HEMATOCRIT 37.4 % (32.4-45.2); HEMOGLOBIN 12.4 GM/dL (10.7-15.3); MCH 28.7 pg (25.7-33.7); MCHC 33.2 g/dl (32.0-36.0); MEAN CELL VOLUME 86.5 fl (80-96); MEAN PLT VOLUME 10.6 fl (7.5-11.1); PLATELET COUNT 199 10^3/uL (134-434); RBC 4.32 M/mm3 (3.60-5.2); RDW 12.7 % (11.6-15.6); WHITE BLOOD COUNT 3.1 K/mm3 (4.0-10.0)
[2021-06-02 11:07] LABS: CALCIUM 8.8 mg/dL (8.5-10.1)
[2021-06-02] MEDS: HEPARIN NA (PORCINE) 5,000 UNITS/ML 1ML VIAL SQ SCH ×3 (11:07→21:41)
[2021-06-02 11:08] LABS: CREATININE 0.9 mg/dL (0.55-1.3); PHOSPHOROUS 4.9 mg/dL (2.5-4.9)
[2021-06-02] MEDS: DEXAMETHASONE SOD PHOSPHATE 10 MG/1 ML VIAL IVPUSH SCH (11:37)
[2021-06-02 12:03] LABS: MAGNESIUM 2.6 mg/dL (1.8-2.4)
[2021-06-02] MEDS ORDERED: REMDESIVIR 200 MG in SODIUM CHLORIDE 250 ML IVPB ONE ×2 (13:30→14:00)
[2021-06-03] MEDS: HEPARIN NA (PORCINE) 5,000 UNITS/ML 1ML VIAL SQ SCH (05:39)
[2021-06-03 08:21] LABS: BASO % 0.2 % (0-2.0); HEMATOCRIT 34.8 % (32.4-45.2); HEMOGLOBIN 11.6 GM/dL (10.7-15.3); LYMPH % 11.1 % (8-40); MCH 28.7 pg (25.7-33.7); MCHC 33.4 g/dl (32.0-36.0); MEAN CELL VOLUME 85.9 fl (80-96); MEAN PLT VOLUME 10.2 fl (7.5-11.1); MONO % 9.2 % (3.8-10.2); NEUT % 79.5 % (42.8-82.8); PLATELET COUNT 201 10^3/uL (134-434); RBC 4.05 M/mm3 (3.60-5.2); RDW 12.7 % (11.6-15.6); WHITE BLOOD COUNT 6.5 K/mm3 (4.0-10.0)
[2021-06-03 08:43] LABS: ALBUMIN 2.8 g/dl (3.4-5.0); CALCIUM 8.8 mg/dL (8.5-10.1)
[2021-06-03 08:44] LABS: BLOOD UREA NITROGEN 34.4 mg/dL (7-18); MAGNESIUM 2.6 mg/dL (1.8-2.4)
[2021-06-03 08:47] LABS: CREATININE 0.9 mg/dL (0.55-1.3); PHOSPHOROUS 4.4 mg/dL (2.5-4.9)
[2021-06-03 08:48] LABS: BILIRUBIN,TOTAL 0.7 mg/dL (0.2-1); TOT PROT 6.6 g/dl (6.4-8.2)
[2021-06-03] MEDS ORDERED: PT OWN MED DRAWER 7, Y5N ONE (10:49)
[2021-06-03] MEDS: CHOLECALCIFEROL (VIT D3) 1,000 UNIT (25 MCG) TABLET PO SCH (10:55)
[2021-06-03] MEDS: ZINC SULFATE 220 MG CAPSULE (FP) PO SCH (10:55)
[2021-06-03] MEDS: NIFEdipine E.R. 30 MG TABLET PO SCH (10:55)
[2021-06-03] MEDS: ASCORBIC ACID 500 MG TABLET (FP) PO SCH ×2 (10:55→22:05)
[2021-06-03] MEDS: DEXAMETHASONE SOD PHOSPHATE 10 MG/1 ML VIAL IVPUSH SCH (10:56)
[2021-06-03] MEDS: LOSARTAN POTASSIUM 50 MG TABLET PO SCH (10:56)
[2021-06-03] MEDS: BUDESONIDE/FORMETEROL FUMARATE 160/4.5 mcg INHALER IH SCH ×2 (13:55→22:04)
[2021-06-03] MEDS: ALBUTEROL SO4 HFA INHALER IH SCH ×3 (13:55→22:04)
[2021-06-03] MEDS: REMDESIVIR 100 MG in SODIUM CHLORIDE 250 ML IVPB SCH (15:54)
[2021-06-04] MEDS: ALBUTEROL SO4 HFA INHALER IH SCH ×4 (07:30→21:14)
[2021-06-04 08:15] LABS: BASO % 0.4 % (0-2.0); HEMATOCRIT 33.4 % (32.4-45.2); HEMOGLOBIN 11.6 GM/dL (10.7-15.3); LYMPH % 11.6 % (8-40); MCH 29.2 pg (25.7-33.7); MCHC 34.8 g/dl (32.0-36.0); MEAN CELL VOLUME 83.8 fl (80-96); MONO % 7.6 % (3.8-10.2); NEUT % 80.4 % (42.8-82.8); PLATELET COUNT 226 10^3/uL (134-434); RBC 3.98 M/mm3 (3.60-5.2); RDW 12.7 % (11.6-15.6); WHITE BLOOD COUNT 7.8 K/mm3 (4.0-10.0)
[2021-06-04 08:33] LABS: ALBUMIN 2.7 g/dl (3.4-5.0); CALCIUM 8.3 mg/dL (8.5-10.1)
[2021-06-04 08:34] LABS: BLOOD UREA NITROGEN 30.6 mg/dL (7-18); MAGNESIUM 2.4 mg/dL (1.8-2.4)
[2021-06-04 08:36] LABS: CREATININE 0.9 mg/dL (0.55-1.3)
[2021-06-04 08:37] LABS: PHOSPHOROUS 3.7 mg/dL (2.5-4.9)
[2021-06-04 08:38] LABS: BILIRUBIN,TOTAL 0.4 mg/dL (0.2-1); TOT PROT 6.4 g/dl (6.4-8.2)
[2021-06-04] MEDS ORDERED: PT OWN MED DRAWER 7, Y5N ONE ×2 (09:04→12:54)
[2021-06-04] MEDS: ASCORBIC ACID 500 MG TABLET (FP) PO SCH ×2 (09:28→21:14)
[2021-06-04] MEDS: ENOXAPARIN NA (PORCINE) 40 MG/0.4 ML DISP.SYRIN SQ SCH (09:28)
[2021-06-04] MEDS: NIFEdipine E.R. 30 MG TABLET PO SCH (09:29)
[2021-06-04] MEDS: ZINC SULFATE 220 MG CAPSULE (FP) PO SCH (09:29)
[2021-06-04] MEDS: CHOLECALCIFEROL (VIT D3) 1,000 UNIT (25 MCG) TABLET PO SCH (09:29)
[2021-06-04] MEDS: DEXAMETHASONE SOD PHOSPHATE 10 MG/1 ML VIAL IVPUSH SCH (09:29)
[2021-06-04] MEDS: LOSARTAN POTASSIUM 50 MG TABLET PO SCH (09:30)
[2021-06-04] MEDS: BUDESONIDE/FORMETEROL FUMARATE 160/4.5 mcg INHALER IH SCH ×2 (09:30→21:14)
[2021-06-04] MEDS: REMDESIVIR 100 MG in SODIUM CHLORIDE 250 ML IVPB SCH (14:10)
[2021-06-04 15:52] VITALS: BMI 25.6
[2021-06-05 08:10] LABS: BASO % 0.2 % (0-2.0); HEMATOCRIT 33.1 % (32.4-45.2); HEMOGLOBIN 11.2 GM/dL (10.7-15.3); LYMPH % 15.4 % (8-40); MCH 28.9 pg (25.7-33.7); MCHC 33.9 g/dl (32.0-36.0); MEAN CELL VOLUME 85.3 fl (80-96); MEAN PLT VOLUME 10.2 fl (7.5-11.1); MONO % 9.8 % (3.8-10.2); NEUT % 74.6 % (42.8-82.8); PLATELET COUNT 207 10^3/uL (134-434); RBC 3.88 M/mm3 (3.60-5.2); RDW 12.7 % (11.6-15.6); WHITE BLOOD COUNT 7.1 K/mm3 (4.0-10.0)
[2021-06-05 08:19] LABS: ALBUMIN 2.4 g/dl (3.4-5.0); CREATININE 0.7 mg/dL (0.55-1.3)
[2021-06-05 08:20] LABS: BLOOD UREA NITROGEN 27.3 mg/dL (7-18); CALCIUM 8.3 mg/dL (8.5-10.1); PHOSPHOROUS 3.2 mg/dL (2.5-4.9)
[2021-06-05 08:21] LABS: BILIRUBIN,TOTAL 0.3 mg/dL (0.2-1)
[2021-06-05 08:23] LABS: MAGNESIUM 2.3 mg/dL (1.8-2.4)
[2021-06-05] MEDS: ALBUTEROL SO4 HFA INHALER IH SCH ×4 (08:32→21:41)
[2021-06-05] MEDS: ZINC SULFATE 220 MG CAPSULE (FP) PO SCH (10:34)
[2021-06-05] MEDS: CHOLECALCIFEROL (VIT D3) 1,000 UNIT (25 MCG) TABLET PO SCH (10:34)
[2021-06-05] MEDS: ASCORBIC ACID 500 MG TABLET (FP) PO SCH ×2 (10:34→21:41)
[2021-06-05] MEDS: DEXAMETHASONE SOD PHOSPHATE 10 MG/1 ML VIAL IVPUSH SCH (10:34)
[2021-06-05] MEDS: NIFEdipine E.R. 30 MG TABLET PO SCH (10:34)
[2021-06-05] MEDS: LOSARTAN POTASSIUM 50 MG TABLET PO SCH (10:35)
[2021-06-05] MEDS: ENOXAPARIN NA (PORCINE) 40 MG/0.4 ML DISP.SYRIN SQ SCH (10:37)
[2021-06-05] MEDS: BUDESONIDE/FORMETEROL FUMARATE 160/4.5 mcg INHALER IH SCH ×2 (10:37→21:41)
[2021-06-05] MEDS: REMDESIVIR 100 MG in SODIUM CHLORIDE 250 ML IVPB SCH (13:06)
[2021-06-06 08:51] LABS: HEMATOCRIT 33.9 % (32.4-45.2); HEMOGLOBIN 11.8 GM/dL (10.7-15.3); MCH 29.1 pg (25.7-33.7); MCHC 34.7 g/dl (32.0-36.0); MEAN CELL VOLUME 83.8 fl (80-96); PLATELET COUNT 222 10^3/uL (134-434); RBC 4.05 M/mm3 (3.60-5.2); RDW 12.8 % (11.6-15.6); WHITE BLOOD COUNT 6.8 K/mm3 (4.0-10.0)
[2021-06-06 09:31] LABS: CALCIUM 8.7 mg/dL (8.5-10.1)
[2021-06-06 09:35] LABS: ALBUMIN 2.6 g/dl (3.4-5.0)
[2021-06-06 09:36] LABS: MAGNESIUM 2.2 mg/dL (1.8-2.4)
[2021-06-06 09:37] LABS: CREATININE 0.9 mg/dL (0.55-1.3)
[2021-06-06 09:38] LABS: PHOSPHOROUS 3.3 mg/dL (2.5-4.9); TOT PROT 6.1 g/dl (6.4-8.2)
[2021-06-06 09:44] LABS: ANISOCYTOSIS 0; HELMET CELLS 0; HOWELL-JOLLY BODIES 0; MACROCYTOSIS 0; OVALOCYTE 0; PLATELET ESTIMATE NORMAL; ROULEAU 0; SICKELED CELLS 0; TARGET CELLS 0; TEAR DROP CELLS 0; TOXIC GRANULATION 0
[2021-06-06] MEDS: ZINC SULFATE 220 MG CAPSULE (FP) PO SCH (11:53)
[2021-06-06] MEDS: CHOLECALCIFEROL (VIT D3) 1,000 UNIT (25 MCG) TABLET PO SCH (11:54)
[2021-06-06] MEDS: ASCORBIC ACID 500 MG TABLET (FP) PO SCH (11:54)
[2021-06-06] MEDS: NIFEdipine E.R. 30 MG TABLET PO SCH (11:54)
[2021-06-06] MEDS: LOSARTAN POTASSIUM 50 MG TABLET PO SCH (11:57)
[2021-06-06] MEDS: ALBUTEROL SO4 HFA INHALER IH SCH ×4 (11:58→16:04)
[2021-06-06] MEDS: BUDESONIDE/FORMETEROL FUMARATE 160/4.5 mcg INHALER IH SCH (11:59)
[2021-06-06] MEDS: ENOXAPARIN NA (PORCINE) 40 MG/0.4 ML DISP.SYRIN SQ SCH (12:01)
[2021-06-06] MEDS ORDERED: PT OWN MED DRAWER 7, Y5N ONE (12:02)
[2021-06-06] MEDS: DEXAMETHASONE SOD PHOSPHATE 10 MG/1 ML VIAL IVPUSH SCH (12:03)
[2021-06-06 12:19] VITALS: PULSE 61
[2021-06-06] MEDS: REMDESIVIR 100 MG in SODIUM CHLORIDE 250 ML IVPB SCH (14:43)
[2021-06-06 18:04] VITALS: BP 136/71; TEMP 98.2
== END 2021-06-06 18:07 | disposition home or self-care (01) | DRG 177 ==
LOC: JER 14:38 → JERBED 18:18 → J5S 06-02 03:28
PROVIDERS: ATTEND Internal Medicine
PROC: XW033E5 Introduction of Remdesivir Anti-infective into Peripheral Vein, Percutaneous Approach, New Technology Group 5 (ICD-10-PCS; principal; 2021-06-02)
DX: U07.1 COVID-19 (principal); J96.01 Acute respiratory failure with hypoxia; J12.82 Pneumonia due to coronavirus disease 2019; J98.11 Atelectasis; I10 Essential (primary) hypertension; D72.819 Decreased white blood cell count, unspecified; K44.9 Diaphragmatic hernia without obstruction or gangrene; I77.810 Thoracic aortic ectasia
CPT/HCPCS: 36415; 71046-TC-FY; 71270-TC; 80048; 80053; 82550; 82728; 82803; 83615; 83735; 84100; 84484; 85025; 85027; 85379; 85610; 85730; 86140; 86769; 87804; 87807; 87899; 93005; 93010; 93970-TC; 94010; 94761; 99285-25; C9399; C9803; J1100; J1644; U0003; U0005

== ENCOUNTER 2023-06-21 18:58 | Emergency (ER) | payer OTHER ==
[2023-06-21 19:05] VITALS: BMI 27.4
[2023-06-21] MEDS ORDERED: ACETAMINOPHEN 500 MG TABLET (FP) PO ONE (20:28)
[2023-06-21] MEDS ORDERED: ACETAMINOPHEN 325 MG TABLET (FP) ONE (21:22)
[2023-06-21 21:49] LABS: BASO % 0.6 % (0-2.0); EOS % 0.5 % (0-4.5); HEMATOCRIT 38.1 % (32.4-45.2); HEMOGLOBIN 12.8 GM/dL (10.7-15.3); LYMPH % 18.3 % (8-40); MCH 28.8 pg (25.7-33.7); MCHC 33.7 g/dl (32.0-36.0); MEAN CELL VOLUME 85.4 fl (80-96); MEAN PLT VOLUME 9.8 fl (7.5-11.1); MONO % 6.9 % (3.8-10.2); NEUT % 73.7 % (42.8-82.8); PLATELET COUNT 227 10^3/uL (134-434); RBC 4.46 M/mm3 (3.60-5.2); RDW 12.9 % (11.6-15.6); WHITE BLOOD COUNT 8.9 K/mm3 (4.0-10.0)
[2023-06-21 22:17] VITALS: BP 148/77; RESP 18
[2023-06-21 22:18] VITALS: PULSE 59; TEMP 98.1
[2023-06-21 22:20] LABS: BLOOD UREA NITROGEN 21.4 mg/dL (7-18)
[2023-06-21 22:22] LABS: EPI CELLS 2 /uL (0-25.1); HYALINE CASTS 0 /uL (0-3.1); PH,URINE 5.5 (5.0-8.0); URINE APPEARANCE CLEAR; URINE BACTERIA 12 /uL (0-1359); URINE BILIRUBIN NEGATIVE (NEGATIVE); URINE COLOR YELLOW; URINE GLUCOSE (UA) NEGATIVE (NEGATIVE); URINE KETONE NEGATIVE (NEGATIVE); URINE LEUK ESTERASE 1+ (NEGATIVE); URINE NITRITE NEGATIVE (NEGATIVE); URINE PROTEIN NEGATIVE (NEGATIVE); URINE RBC 5 /uL (0-23.9); URINE UROBILINOGEN 0.2 mg/dL (0.2-1.0); URINE WBC 16 /uL (0-25.8)
[2023-06-21 22:23] LABS: BILIRUBIN,TOTAL 0.4 mg/dL (0.2-1)
[2023-06-21 22:25] LABS: TOT PROT 7.5 g/dl (6.4-8.2)
== END 2023-06-21 23:08 | disposition home or self-care (01) ==
LOC: JER 18:58
DX: S22.31XA Fracture of one rib, right side, initial encounter for closed fracture (principal); V49.40XA Driver injured in collision with unspecified motor vehicles in traffic accident, initial encounter; Y92.9 Unspecified place or not applicable
CPT/HCPCS: 36415; 70450-TC; 71250-TC; 72125-TC; 72170-TC-FY; 80053; 81003; 84484; 85025; 93005; 93010; 99285-25